=== PATIENT | male | born 1965 | race Caucasian/White ===

== ENCOUNTER 2021-12-27 16:52 | Emergency (ER) | payer SELFPAY ==
[2021-12-27] MEDS ORDERED: SODIUM CHLORIDE 0.9% 1,000 ML IV STA (17:06)
[2021-12-27] MEDS ORDERED: ONDANSETRON 4 MG/2 ML VIAL IVP STA (17:06)
--- NOTE | 2021-12-27 17:08 | ED Physician Documentation ---
PD HPI ABD PAIN - Stated complaint Stated Complaint: ABD PX - Chief complaint Chief Complaint: Abd Pain - History obtained from History obtained from: Patient - Additional information Additional information: 56-year-old gentleman with history of inguinal hernia repair he thinks about 7 or 8 years ago, otherwise no history of abdominal surgeries. He is a heavy smoker and drinker and has a history of hypertension. He has no formal diagnosis of COPD but does wonder if he has COPD. He presents with about a weeks worth of right lower quadrant pain associated with valeriano colored immediately stools and nausea with occasional vomiting. He denies fevers or weight loss. No diarrhea and no constipation. No sick contacts. He declines pain medication on initial evaluation but agrees to something for nausea. Review of Systems Ten Systems: 10 systems reviewed and negative Constitutional: denies: Fever, Chills Cardiac: reports: Reviewed and negative Respiratory: reports: Reviewed and negative PD PAST MEDICAL HISTORY - Past Medical History Cardiovascular: Hypertension, High cholesterol Respiratory: Pneumonia Endocrine/Autoimmune: None GI: None : None HEENT: Chronic sinusitis Psych: Panic attacks Musculoskeletal: None Derm: None - Past Surgical History Past Surgical History: Yes - Present Medications Home Medications: Ambulatory Orders Medication Instructions Recorded Confirmed Atorvastatin [Lipitor] 10 mg PO QPM 11/10/14 08/29/15 Chlorthalidone 1 tab PO DAILY 08/29/15 08/29/15 Metoprolol Tartrate 50 mg PO BID 08/29/15 08/29/15 Ondansetron Odt [Zofran] 4 mg TL Q6H PRN #10 tablet 12/27/21 - Allergies Allergies/Adverse Reactions: Allergies Allergy/AdvReac Type Severity Reaction Status Date / Time No Known Drug Allergies Allergy Verified 08/29/15 02:17 - Social History Does the pt smoke?: Yes Smoking Status: Current every day smoker Does the pt drink ETOH?: Yes Does the pt have substance abuse?: No - Immunizations Immunizations are current?: Yes PD ED PE NORMAL - Vitals Vital signs reviewed: Yes - General General: Alert and oriented X 3, Other (He appears slightly uncomfortable) - HEENT HEENT: PERRL, EOMI - Neck Neck: Supple, no meningeal sign, No bony TTP - Cardiac Cardiac: RRR, No murmur - Respiratory Respiratory: Other (Mild expiratory wheezes, nonlabored) - Abdomen Abdomen: Normal bowel sounds, Soft, Other (Mild diffuse tenderness with focal tenderness in the right lower quadrant) - Back Back: No CVA TTP, No spinal TTP - Derm Derm: Normal color, Warm and dry - Extremities Extremities: No edema, No calf tenderness / cord - Neuro Neuro: Alert and oriented X 3, Normal speech Results - Vitals Vitals: Vital Signs - 24 hr 12/27/21 12/27/21 12/27/21 16:55 17:27 18:57 Temperature 36.5 C Heart Rate 120 H 101 H 100 Respiratory 16 20 19 Rate Blood Pressure 180/100 H 169/118 H 150/97 H O2 Saturation 100 95 95 Oxygen O2 Source Room air - Labs Labs: Laboratory Tests 12/27/21 12/27/21 12/27/21 17:12 17:17 17:17 WBC 13.0 H RBC 5.61 Hgb 18.8 H Hct 53.1 H MCV 94.7 H MCH 33.5 H MCHC 35.4 RDW 14.1 Plt Count 229 MPV 9.7 Neut # (Auto) 11.0 H Lymph # (Auto) 1.1 L [place] # (Auto) 0.8 Eos # (Auto) 0.0 Baso # (Auto) 0.1 Absolute Nucleated RBC 0.00 Nucleated RBC % 0.0 Sodium 134 L Potassium 3.7 Chloride 101 Carbon Dioxide 22 Anion Gap 11.0 BUN 12 Creatinine 0.9 Estimated GFR (MDRD) 87 L Glucose 112 H Calcium 8.7 Total Bilirubin 0.7 AST 43 H ALT 55 Alkaline Phosphatase 73 Total Protein 8.0 Albumin 4.8 Globulin 3.2 Albumin/Globulin Ratio 1.5 Lipase 40 Urine Color YELLOW Urine Clarity CLEAR Urine pH 6.0 Ur Specific [place] >=1.030 H Urine Protein TRACE Urine Glucose (UA) NEGATIVE Urine Ketones NEGATIVE Urine Occult Blood NEGATIVE Urine Nitrite NEGATIVE Urine Bilirubin NEGATIVE Urine Urobilinogen 0.2 (NORMAL) Ur Leukocyte Esterase NEGATIVE Ur Microscopic Review NOT INDICATED Urine Culture Comments NOT INDICATED PD MEDICAL DECISION MAKING - ED course ED course: 56-year-old gentleman with history of tobacco and alcohol use presents with stomach upset and nausea. There is some pain but the pain is insignificant compared with the nausea. On repeat examination after couple doses of nausea medicine he is nontender. Really his nausea is getting better. He still declines pain medication. He has a very mild transaminitis. He has increased red cells likely due to chronic smoking and probably undiagnosed COPD. 56-year-old gentleman with a abdominal syndrome most consistent with gastroenteritis, that said it has been going on a little too long and does have some focal right lower quadrant tenderness, as such a work-up was done and CT imaging was negative. He did have some incidental findings including hepatic steatosis and nephrolithiasis which were discussed with him. He was encouraged to quit drinking and smoking. On reexamination at 7 PM he was nontender and he remained nontender on reexamination at 7:35 PM and had passed p.o. challenge at that juncture. He was given close return precautions. Departure - Departure Disposition: 01 Home, Self Care Clinical Impression: Polycythemia secondary to smoking, Alcoholic liver disease Vomiting Qualifiers: Vomiting type: unspecified Nausea presence: with nausea Qualified Code(s): R11.2 - Nausea with vomiting, unspecified Condition: Good Record reviewed to determine appropriate education?: Yes Instructions: ED Nausea Vomiting Prescriptions: Ondansetron Odt [Zofran] 4 mg TL Q6H PRN #10 tablet PRN Reason: Nausea / Vomiting Comments: I sent your prescription to [facility] in [place]. Return for new or worsening symptoms or if not better in 24 hours time. Ideally set up with a primary care physician for routine care and follow-up.
[2021-12-27] MEDS ORDERED: IOVERSOL 320 100 ML VIAL IVP ONE ×2 (17:17→18:16)
[2021-12-27 17:27] LABS: BASOPHILS # (AUTO) 0.1 10^3/uL (0.0-0.1); BASOPHILS % (AUTO) 0.8 %; EOSINOPHILS % (AUTO) 0.2 %; HCT - HEMATOCRIT 53.1 % (42.0-52.0); HGB - HEMOGLOBIN 18.8 g/dL (14.0-18.0); LYMPHOCYTES # (AUTO) 1.1 10^3/uL (1.5-3.5); LYMPHOCYTES % (AUTO) 8.1 %; MEAN CORPUSCULAR HEMOGLOBIN 33.5 pg (27.0-31.0); MEAN CORPUSCULAR HGB CONC 35.4 g/dL (32.0-36.0); MEAN CORPUSCULAR VOLUME 94.7 fL (80.0-94.0); MEAN PLATELET VOLUME 9.7 fL (7.4-11.4); MONOCYTES # (AUTO) 0.8 10^3/uL (0.0-1.0); MONOCYTES % (AUTO) 5.8 %; NEUTROPHILS % (AUTO) 84.8 %; PLT - PLATELET COUNT 229 10^3/uL (130-450); RED BLOOD COUNT 5.61 10^6/uL (4.70-6.10); RED CELL DISTRIBUTION WIDTH 14.1 % (12.0-15.0)
[2021-12-27 17:29] LABS: BILIRUBIN,URINE NEGATIVE (NEGATIVE); GLUCOSE, URINE (UA) NEGATIVE (NEGATIVE); KETONES,URINE (UA) NEGATIVE (NEGATIVE); LEUKOCYTE ESTERASE, URINE NEGATIVE (NEGATIVE); NITRITE,URINE NEGATIVE (NEGATIVE); OCCULT BLOOD,URINE NEGATIVE (NEGATIVE); PROTEIN,URINE TRACE mg/dL (NEGATIVE); UROBILINOGEN,URINE 0.2 (NORMAL) E.U./dL (NORMAL)
[2021-12-27 17:30] LABS: CLARITY,URINE CLEAR (CLEAR)
[2021-12-27 17:38] LABS: ALBUMIN 4.8 g/dL (3.2-5.5); ALBUMIN/GLOBULIN RATIO 1.5 (1.0-2.2); BILIRUBIN,TOTAL 0.7 mg/dL (0.2-1.0); CALCIUM 8.7 mg/dL (8.5-10.3); CREATININE 0.9 mg/dL (0.6-1.2); POTASSIUM 3.7 mmol/L (3.5-5.0)
--- NOTE | 2021-12-27 18:29 | CT Report ---
PROCEDURE: Abdomen/Pelvis W INDICATIONS: RLQ pain CONTRAST: IV CONTRAST: Optiray 320 ml: 100 PO CONTRAST: *NO PO CONTRAST TECHNIQUE: After the administration of intravenous contrast, 5 mm thick sections acquired from the diaphragms to the symphysis. 5 mm thick coronal and sagittal reformats were acquired. For radiation dose reducti on, the following was used: automated exposure control, adjustment of mA and/or kV according to jennifer ent size. COMPARISON: None. FINDINGS: Image quality: Excellent. ABDOMEN: Lung bases: Lung bases are clear. Heart size is normal. Solid organs: Liver and spleen are normal in size and enhancement. Diffuse fatty infiltration of the liver. Gallbladder is within normal limits Biliary system is non dilated. Pancreas enhances vicenta lly. No adrenal nodules. Kidneys demonstrate normal size and enhancement, without hydronephrosis. 2 -3 mm nonobstructing stone in the lower pole of the right kidney. Peritoneum and bowel: Bowel loops demonstrate normal wall thickness and caliber. No free fluid or a ir. Appendix is normal. Nodes and vessels: No retroperitoneal or mesenteric adenopathy by size criteria. Aorta and inferior vena cava are normal in size. Miscellaneous: No ventral hernias. PELVIS: Genitourinary: Bladder wall thickness is normal. Miscellaneous: No inguinal hernias or adenopathy. Status post right inguinal hernia repair. Bones: No suspicious bony lesions. No vertebral body compression fractures. IMPRESSION: 1. Appendix is normal. 2. 2-3 mm nonobstructing right renal stone. 3. Hepatic steatosis. Reviewed by: Martha Reyes MD, PhD on 12/27/2021 6:28 PM PST Approved by: Martha Reyes MD, PhD on 12/27/2021 6:28 PM PST Station ID: [id number]
[2021-12-27] MEDS ORDERED: METOCLOPRAMIDE 10 MG/2 ML VIAL IVP STA (18:34)
[2021-12-27] MEDS ORDERED: MAG HYDROX/AL HYDROX/SIMETH 30 ML UDC PO STA (18:48)
[2021-12-27 19:43] VITALS: BP 148/93
== END 2021-12-27 19:43 | disposition home or self-care (01) ==
LOC: ED 16:52
DX: D75.1 Secondary polycythemia (principal); F17.200 Nicotine dependence, unspecified, uncomplicated; K70.9 Alcoholic liver disease, unspecified; K76.0 Fatty (change of) liver, not elsewhere classified; N20.0 Calculus of kidney
CPT/HCPCS: 36415; 74177; 80053; 81003; 83690; 85025; 96374; 96375; 99282; 99284; A9270; J2765; Q9967; 81001; 87086

== ENCOUNTER 2022-09-06 15:31 | Emergency (ER) | payer SELFPAY ==
[2022-09-06 16:12] LABS: BASOPHILS # (AUTO) 0.1 10^3/uL (0.0-0.1); BASOPHILS % (AUTO) 1.1 %; EOSINOPHILS # (AUTO) 0.1 10^3/uL (0.0-0.7); EOSINOPHILS % (AUTO) 1.5 %; HCT - HEMATOCRIT 51.2 % (42.0-52.0); HGB - HEMOGLOBIN 17.6 g/dL (14.0-18.0); LYMPHOCYTES # (AUTO) 1.7 10^3/uL (1.5-3.5); LYMPHOCYTES % (AUTO) 26.2 %; MEAN CORPUSCULAR HEMOGLOBIN 32.1 pg (27.0-31.0); MEAN CORPUSCULAR HGB CONC 34.4 g/dL (32.0-36.0); MEAN CORPUSCULAR VOLUME 93.4 fL (80.0-94.0); MEAN PLATELET VOLUME 10.2 fL (7.4-11.4); MONOCYTES # (AUTO) 0.7 10^3/uL (0.0-1.0); MONOCYTES % (AUTO) 10.5 %; NEUTROPHILS % (AUTO) 60.4 %; PLT - PLATELET COUNT 225 10^3/uL (130-450); RED BLOOD COUNT 5.48 10^6/uL (4.70-6.10); RED CELL DISTRIBUTION WIDTH 13.9 % (12.0-15.0); WHITE BLOOD COUNT 6.6 x10^3/uL (4.8-10.8)
[2022-09-06 16:21] LABS: ALBUMIN 4.2 g/dL (3.2-5.5); ALBUMIN/GLOBULIN RATIO 1.2 (1.0-2.2); BILIRUBIN,TOTAL 0.6 mg/dL (0.2-1.0); CREATININE 0.8 mg/dL (0.6-1.2); POTASSIUM 3.6 mmol/L (3.5-5.0); TOTAL PROTEIN 7.6 g/dL (6.7-8.2)
[2022-09-06] MEDS ORDERED: iohexoL-300 100 ML VIAL ONE (16:37)
[2022-09-06] MEDS ORDERED: SODIUM CHLORIDE 0.9% 1,000 ML IV STA (16:45)
--- NOTE | 2022-09-06 16:49 | XRAY Report ---
PROCEDURE: Chest 1 View X-Ray INDICATIONS: Chest Pain TECHNIQUE: One view of the chest was acquired. COMPARISON: None. FINDINGS: Surgical changes and devices: None. Lungs and pleura: No pleural effusions or pneumothorax. Lungs are clear. Mediastinum: Mediastinal contours appear normal. Heart size is normal. Bones and chest wall: No suspicious bony lesions. Overlying soft tissues appear unremarkable. IMPRESSION: No acute cardiopulmonary process demonstrated radiographically. Reviewed by: Micah Michael MD on 09/06/2022 4:48 PM PST Approved by: Micah Michael MD on 09/06/2022 4:48 PM PST Station ID: [id number]
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
[2022-09-06 17:27] LABS: MUDS CUTOFF CONCENTRATIONS CUTOFF CONC BELOW:
--- NOTE | 2022-09-06 17:42 | CT Report ---
PROCEDURE: ANGIO NECK W INDICATIONS: dizzy, flashing lights CONTRAST: 80ml Omnipaque 300 TECHNIQUE: After the administration of intravenous contrast, 1.5 mm axial sections acquired from the aortic arch to the [place] of [place]. Coronal 3-D maximum intensity projection (MIP) and/or volume rendering ref ormats were then performed. For radiation dose reduction, the following was used: automated exposur e control, adjustment of mA and/or kV according to patient size. COMPARISON: Correlation is made with the accompanying head CT angiogram, 09/06/2022. FINDINGS: Image quality: Excellent. Carotid system: The great vessels demonstrate a conventional anatomy as they arise from the aortic a rch. The origins of the common carotid arteries appear patent. The common carotid arteries demonstr ate normal calibers and courses. The bifurcation regions appear normal bilaterally. The internal ca rotid arteries demonstrate normal caliber. The distal internal carotid arteries demonstrate moderate tortuosity. Posterior circulation: The origins of the vertebral arteries appear patent. The more superior porti ons of the vertebral arteries demonstrate normal course and caliber. They join to form a normal appe aring basilar artery. Soft tissues: Visualized neck soft tissues demonstrate no suspicious abnormalities. The thyroid is normal in size and there are no incidental findings. Bones: No suspicious bony lesions. Visualized cervical spine appears normally aligned. Moderate low er cervical spine degenerative changes can be seen. IMPRESSION: No hemodynamically significant stenosis can be seen within the arteries of the neck. The estimate of stenosis included in the report of the imaging study was calculated using the NASCET method Reviewed by: Ronald Min MD on 09/06/2022 4:41 PM AKST Approved by: Ronald Min MD on 09/06/2022 4:41 PM [place] Station ID: [id number]
[2022-09-06 17:43] LABS: AMPHETAMINE SCREEN,URINE NEGATIVE (NEGATIVE); BARBITURATE SCREEN,UR NEGATIVE (NEGATIVE); BENZODIAZEPINES SCREEN, URINE NEGATIVE (NEGATIVE); COCAINE SCREEN URINE NEGATIVE (NEGATIVE); METHADONE SCREEN, URINE NEGATIVE (NEGATIVE); METHAMPHETAMINES SCREEN, URINE NEGATIVE (NEGATIVE); OPIATE SCREEN, URINE NEGATIVE (NEGATIVE); OXYCODONE SCREEN, URINE NEGATIVE (NEGATIVE); PROPOXYPHENE SCREEN, URINE NEGATIVE (NEGATIVE); THC CANNABINOID SCREEN, URINE NEGATIVE (NEGATIVE); TRICYCLIC ANTIDEPRESSANT,URINE NEGATIVE (NEGATIVE)
--- NOTE | 2022-09-06 17:45 | CT Report ---
PROCEDURE: ANGIO HEAD W/WO INDICATIONS: dizzy flashing lights CONTRAST: 80ml Omnipaque 300 TECHNIQUE: Precontrast 4.5 mm thick angled axial sections acquired from the foramen magnum to the vertex. Afte r the administration of intravenous contrast, 1 mm thick sections acquired through the [place] of [place] is. Postcontrast 4.5 mm thick sections then re-acquired from the foramen magnum to the vertex. 3-di mensional qlkivys-vgyjdwdkh-bjjgqiagzv (MIP) and/or volume rendering reformats were acquired of the c entral intracranial vasculature. For radiation dose reduction, the following was used: automated ex posure control, adjustment of mA and/or kV according to patient size. COMPARISON: Correlation is made with the accompanying neck CT angiogram, 09/06/2022. FINDINGS: Image quality: There is streak artifact seen through the skull base. Anterior circulation: Intracranial internal carotid arteries are normal in size and flow. The flow within the paired anterior cerebral arteries is normal and symmetric. The flow within the middle cer ebral arteries is normal and symmetric. The anterior communicating artery is seen. No aneurysms are seen. Posterior circulation: Visualized portions of the vertebral arteries demonstrate normal caliber, and join to form a normal appearing basilar artery. Flow within the posterior cerebral arteries is norm al and symmetric. No aneurysms are seen. CSF spaces: Ventricles are normal in size and shape. Basal cisterns are patent. No extra-axial flu id collections. Brain: No midline shift. No intracranial bleeds or masses. Pena-white matter interface appears int act. Skull and face: Calvarium and facial bones appear intact, without suspicious lesions. Sinuses: Moderate to prominent mucosal thickening is seen within the left right sphenoid sinus. Visu alized sinuses and mastoids are otherwise relatively clear. IMPRESSION: No imaging explanation is found for the patient's presenting symptoms. No significant intracranial arterial abnormalities are seen. No intracranial hemorrhage is seen. No significant intracranial abnormality is seen. Focal right sphenoid sinus disease noted. Reviewed by: Ronald Min MD on 09/06/2022 4:43 PM [place] Approved by: Ronald Min MD on 09/06/2022 4:43 PM [facility] Station ID: [id number]
[2022-09-06 17:50] LABS: VBG HCO3 25.7 mmol/L (23-28); VBG PCO2 49.6 mmHg (41-51); VBG PH 7.332 (7.31-7.41); VBG PO2 45.1 mmHg (25-47)
[2022-09-06 17:51] LABS: VBG OXYGEN SATURATION 79.8 % (60-80); VBG TOTAL CO2 27.2 mmol/L (24-29)
[2022-09-06] MEDS ORDERED: iohexoL-300 100 ML VIAL IVP ONE (18:03)
[2022-09-06] MEDS ORDERED: THIAMINE INJ 100 MG, MAGNESIUM SULFATE 2 GM, MULTIVITAMIN 10 ML, FOLIC ACID INJ 1 MG in... IV ONE ×5 (19:22)
[2022-09-06] MEDS ORDERED: MIDAZOLAM 2 MG/2 ML VIAL IVP STA (19:22)
[2022-09-06] MEDS ORDERED: MAGNESIUM SULFATE 1 GM/2 ML VIAL ONE (19:25)
[2022-09-06] MEDS ORDERED: THIAMINE 100 MG/1 ML 2 ML MDV ONE (19:25)
[2022-09-06] MEDS ORDERED: MULTIVITAMIN IV 10 ML VIAL ONE (19:25)
[2022-09-06] MEDS ORDERED: FOLIC ACID 5 MG/1 ML 10ML MDV ONE (19:25)
[2022-09-06] MEDS ORDERED: levETIRAcetam INJ 1,000 MG in SODIUM CHLORIDE 0.9% 100ML 100 ML IV STA (19:52)
[2022-09-06] MEDS ORDERED: levETIRAcetam 500 MG/5 ML VIAL IVP STA (21:36)
[2022-09-06] MEDS ORDERED: SODIUM CHLORIDE 0.9% IV STA (21:53)
[2022-09-06] MEDS ORDERED: LEVETIRACETAM IV STA (21:53)
[2022-09-06] MEDS ORDERED: DEXTROSE 50% ABBOJECT 25 GM/50 ML SYRINGE IVP STA (23:00)
[2022-09-06] MEDS ORDERED: DEXTROSE 5%-0.45% NACL 1,000 ML IV STA (23:03)
[2022-09-06] MEDS ORDERED: DEXTROSE 50% ABBOJECT 25 GM/50 ML SYRINGE ONE (23:07)
--- NOTE | 2022-09-06 23:30 | ED Physician Documentation ---
ED Addendum - Addendum Addendum: 09/06/22 23:28 Patient arousable to loud verbal stimulation. Subsequently he closes his eyes and rhythmically shakes right hand. d/w [facility] who are searching for bed with EEG monitoring capability. 09/07/22 06:36 Patient AOX4 shortly after the unresponsive episode. No further acute events overnight. plan to endorse to incoming daytime ED MD for further care.
[2022-09-07 07:38] LABS: BASOPHILS # (AUTO) 0.1 10^3/uL (0.0-0.1); EOSINOPHILS # (AUTO) 0.1 10^3/uL (0.0-0.7); EOSINOPHILS % (AUTO) 1.7 %; HCT - HEMATOCRIT 44.8 % (42.0-52.0); HGB - HEMOGLOBIN 15.5 g/dL (14.0-18.0); LYMPHOCYTES # (AUTO) 0.9 10^3/uL (1.5-3.5); LYMPHOCYTES % (AUTO) 16.2 %; MEAN CORPUSCULAR HEMOGLOBIN 32.8 pg (27.0-31.0); MEAN CORPUSCULAR HGB CONC 34.6 g/dL (32.0-36.0); MEAN CORPUSCULAR VOLUME 94.9 fL (80.0-94.0); MEAN PLATELET VOLUME 10.3 fL (7.4-11.4); MONOCYTES # (AUTO) 0.6 10^3/uL (0.0-1.0); NEUTROPHILS # (AUTO) 4.1 10^3/uL (1.5-6.6); NEUTROPHILS % (AUTO) 69.8 %; PLT - PLATELET COUNT 203 10^3/uL (130-450); RED BLOOD COUNT 4.72 10^6/uL (4.70-6.10); WHITE BLOOD COUNT 5.8 x10^3/uL (4.8-10.8)
[2022-09-07 07:51] LABS: ALBUMIN 3.9 g/dL (3.2-5.5); ALBUMIN/GLOBULIN RATIO 1.5 (1.0-2.2); ALKALINE PHOSPHATASE 79 IU/L (42-121); ALT ALANINE AMINOTRANSFERASE 44 IU/L (10-60); AST ASPARTATE AMINOTRANSFERASE 35 IU/L (10-42); BILIRUBIN,TOTAL 0.6 mg/dL (0.2-1.0); BUN - BLOOD UREA NITROGEN 10 mg/dL (6-20); CALCIUM 8.1 mg/dL (8.5-10.3); CARBON DIOXIDE - CO2 24 mmol/L (21-32); CHLORIDE 106 mmol/L (101-111); CREATININE 0.6 mg/dL (0.6-1.2); ETOH - ETHANOL < 5.0 mg/dL; GFR - MDRD 139 (>89); GLUCOSE 84 mg/dL (70-100); LIPASE 39 U/L (22-51); POTASSIUM 3.9 mmol/L (3.5-5.0); SODIUM 139 mmol/L (135-145); TOTAL PROTEIN 6.5 g/dL (6.7-8.2)
[2022-09-07] MEDS ORDERED: GADOBUTROL 10 MMOL/10 ML VIAL ONE (08:25)
--- NOTE | 2022-09-07 08:38 | ED Physician Documentation ---
ED Addendum - Addendum Addendum: Subjective: Patient has no current complaints. States his vision is back to his baseline. Objective: AOx4. No focal deficits, clear speech Assessment: Seizure-like activity Plan:MRI has been ordered for today. Patient is also on waiting list for transfer to facility with EEG capabilities.
[2022-09-07] MEDS ORDERED: levETIRAcetam INJ 1,000 MG in SODIUM CHLORIDE 0.9% 100ML 100 ML IV SCH (09:00)
[2022-09-07] MEDS ORDERED: FOLIC ACID 1 MG TABLET PO SCH (09:00)
[2022-09-07] MEDS ORDERED: THIAMINE 100 MG TABLET PO SCH (09:00)
[2022-09-07] MEDS ORDERED: GADOBUTROL 10 MMOL/10 ML VIAL IVP ONE (10:27)
--- NOTE | 2022-09-07 11:21 | MRI Report ---
PROCEDURE: MRI brain with and without contrast INDICATIONS: AMS, ? seizure; history of right retinal stroke CONTRAST: 10ml gadavist TECHNIQUE: Noncontrast axial T1 spin echo, axial T2 fast spin echo, sagittal and axial FLAIR, coronal T2 fast sp in echo, axial gradient echo, axial diffusion and ADC through the brain. After the administration of contrast, axial and coronal T1 spin echo with fat saturation through the brain. COMPARISON: None. FINDINGS: Image quality: Excellent. CSF spaces: Basal cisterns are patent. No extra-axial fluid collections. Ventricles are normal in size and shape. Brain: No midline shift. No intracranial bleeds or masses. No abnormal intracranial enhancement. There is cerebral volume loss for age. There is periventricular white matter chronic small vessel is chemic change. The brainstem appears normal. Diffusion-weighted images demonstrate no acute ischemi c insults. No chronic ischemic insults. Normal intravascular flow voids are present. Skull and face: Calvarial marrow is normal in signal. Orbits appear normal. Sinuses: Right sphenoid mucosal thickening noted. IMPRESSION: Unremarkable MR brain without intracranial hemorrhage, acute infarct or mass lesion. Incidental right sphenoid mucosal sinus disease Reviewed by: Stan Stewart MD on 09/07/2022 10:20 AM [facility] Approved by: Stan Stewart MD on 09/07/2022 10:20 AM [facility] Station ID: [id number]
[2022-09-07 13:36] VITALS: BP 125/90
--- NOTE | 2022-09-07 14:04 | ED Physician Documentation ---
ED Addendum - Addendum Addendum: 09/07/22 14:00 In brief this is a 57-year-old male who presented to the emergency department yesterday afternoon with altered mental status. He alternated between being obtunded with a Glascow of 8-9 to being completely awake. There was a question of possible seizure activity on presentation as he had a rhythmic jerking motion of his right arm. Subsequent labs were essentially negative with the exception of an elevated blood alcohol of 293. However the elevated alcohol intoxication was not consistent with the changing altered mental status presentation. CT imaging of the head and neck was negative. Please see yesterday's note in full. I subsequently spoke with Dr. Banuelos a neurologist at [facility]. He recommended loading the patient with 4-1/2 g of Keppra for the possibility of a subclinical status epilepticus and attempt to arrange transfer to an [facility] facility that could have neurology and/or EEG availability. Unfortunately there is a paucity of beds and this did not occur. This morning the patient did have an MRI completed that was essentially negative. The patient has also been very awake alert and appropriate since about 4 AM. I just spoke with Dr. Clarke neurologist at [facility]. She has been able to review the MRI imaging she was privileged to know the labs as well as the clinical exam at present. He is a Glascow of 15. No focal deficits with the exception of the loss of vision in the right eye which has been present for 1 month after a retinal stroke. His blood alcohol at this time is undetectable and the patient appears clinically sober. She feels that the patient is stable for discharge home. She thinks that he may have had a subclinical status epilepticus related to alcohol use but now that his alcohol is cleared and he is remained normal she does not feel that he would need to have Keppra dispensed on discharge. She would recommend follow-up with a neurologist as an outpatient to obtain an EEG. I have discussed this plan with the patient and he is comfortable with discharge home. He will continue to take his usual routine medications. He has unremarkable vitals at this time without fever. I discussed with the patient that should he have any new seizure activities he should immediately return to the ER. He was advised to abstain from alcohol.
== END 2022-09-07 14:44 | disposition home or self-care (01) ==
LOC: ED 15:31
DX: F10.129 Alcohol abuse with intoxication, unspecified (principal); Y90.8 Blood alcohol level of 240 mg/100 ml or more; R40.2422 Glasgow coma scale score 9-12, at arrival to emergency department; F17.200 Nicotine dependence, unspecified, uncomplicated; Z20.822 Contact with and (suspected) exposure to COVID-19
CPT/HCPCS: 36415; 51702; 70496; 70498; 70553; 71045; 80053; 80306; 80320; 81599; 82803; 83605; 83690; 83930; 83935; 84484; 85025; 87635; 93005; 96361; 96365; 96366; 96368; 96375; 99285; A9270; A9585; J3411; Q9967

== ENCOUNTER 2022-09-12 23:22 | Outpatient (CLI) | payer SELFPAY | END 2022-09-12 23:59 | disposition critical access hospital (66) | LOC: EMS 23:22 | DX: R41.82 Altered mental status, unspecified (principal); R46.89 Other symptoms and signs involving appearance and behavior; R06.4 Hyperventilation; Z72.89 Other problems related to lifestyle | CPT/HCPCS: A0425; A0429 ==

== ENCOUNTER 2022-09-12 23:44 | Emergency (ER) | payer SELFPAY ==
[2022-09-13] MEDS ORDERED: levETIRAcetam 500 MG/5 ML VIAL IVP STA (00:24)
[2022-09-13] MEDS ORDERED: THIAMINE INJ 100 MG, MAGNESIUM SULFATE 2 GM, MULTIVITAMIN 10 ML, FOLIC ACID INJ 1 MG in... IV ONE ×5 (00:24)
[2022-09-13 00:25] LABS: BASOPHILS # (AUTO) 0.1 10^3/uL (0.0-0.1); BASOPHILS % (AUTO) 1.5 %; EOSINOPHILS # (AUTO) 0.1 10^3/uL (0.0-0.7); EOSINOPHILS % (AUTO) 1.4 %; HCT - HEMATOCRIT 47.9 % (42.0-52.0); HGB - HEMOGLOBIN 16.2 g/dL (14.0-18.0); LYMPHOCYTES # (AUTO) 2.2 10^3/uL (1.5-3.5); LYMPHOCYTES % (AUTO) 30.5 %; MEAN CORPUSCULAR HEMOGLOBIN 32.3 pg (27.0-31.0); MEAN CORPUSCULAR HGB CONC 33.8 g/dL (32.0-36.0); MEAN CORPUSCULAR VOLUME 95.4 fL (80.0-94.0); MEAN PLATELET VOLUME 10.5 fL (7.4-11.4); MONOCYTES # (AUTO) 0.7 10^3/uL (0.0-1.0); MONOCYTES % (AUTO) 9.7 %; NEUTROPHILS % (AUTO) 56.5 %; PLT - PLATELET COUNT 279 10^3/uL (130-450); RED BLOOD COUNT 5.02 10^6/uL (4.70-6.10); RED CELL DISTRIBUTION WIDTH 14.6 % (12.0-15.0); WHITE BLOOD COUNT 7.2 x10^3/uL (4.8-10.8)
[2022-09-13] MEDS ORDERED: MULTIVITAMIN IV 10 ML VIAL ONE (00:31)
[2022-09-13] MEDS ORDERED: MAGNESIUM SULFATE 1 GM/2 ML VIAL ONE (00:31)
[2022-09-13] MEDS ORDERED: THIAMINE 100 MG/1 ML 2 ML MDV ONE (00:31)
[2022-09-13] MEDS ORDERED: FOLIC ACID 5 MG/1 ML 10ML MDV ONE (00:31)
[2022-09-13 00:43] LABS: ALBUMIN 3.9 g/dL (3.2-5.5); ALBUMIN/GLOBULIN RATIO 1.3 (1.0-2.2); BILIRUBIN,TOTAL 0.3 mg/dL (0.2-1.0); CALCIUM 8.9 mg/dL (8.5-10.3); CREATININE 0.8 mg/dL (0.6-1.2); POTASSIUM 3.9 mmol/L (3.5-5.0); TOTAL PROTEIN 6.9 g/dL (6.7-8.2)
[2022-09-13] MEDS ORDERED: LORazepam 2 MG/ML VIAL IVP STA ×2 (00:49→09:17)
--- NOTE | 2022-09-13 01:54 | CT Report ---
PROCEDURE: HEAD WO INDICATIONS: altered LOC TECHNIQUE: Noncontrast 4.5 mm thick angled axial sections acquired from the foramen magnum to the vertex. For r adiation dose reduction, the following was used: automated exposure control, adjustment of mA and/or kV according to patient size. COMPARISON: 09/06/2022. FINDINGS: Image quality: There is mild motion artifact. CSF spaces: Basal cisterns are patent. No extra-axial fluid collections. Ventricles are normal in size and shape. Brain: No intracranial hemorrhage, mass, or mass effect. Pena-white matter interface appears preser ashlee. Skull and face: Calvarium and visualized facial bones are intact, without suspicious lesions. Sinuses: Visualized sinuses demonstrate mild mucosal thickening in the ethmoid sinuses. There is muc osal opacification of the right sphenoid sinus. Mastoid air cells are clear. IMPRESSION: 1. No acute intracranial abnormality. 2. Sinus mucosal disease including mucosal opacification of the right sphenoid sinus. Reviewed by: Stanley Colon MD on 09/13/2022 1:53 AM PST Approved by: Stanley Colon MD on 09/13/2022 1:53 AM PST Station ID: [id number]
--- NOTE | 2022-09-13 02:06 | XRAY Report ---
PROCEDURE: Chest 1 View X-Ray INDICATIONS: chest pain TECHNIQUE: One view of the chest was acquired. COMPARISON: Chest x-ray 09/06/2022. FINDINGS: Surgical changes and devices: None. Lungs and pleura: No pleural effusions or pneumothorax. There are slightly low lung volumes. No acut e consolidation. Mediastinum: Mediastinal contours appear normal. Heart size is normal. Bones and chest wall: No suspicious bony lesions. Overlying soft tissues appear unremarkable. IMPRESSION: 1. Low lung volumes without definite acute cardiopulmonary disease. Reviewed by: Stanley Colon MD on 09/13/2022 2:05 AM [facility] Approved by: Stanley Colon MD on 09/13/2022 2:05 AM [facility] Station ID: [id number]
[2022-09-13 02:23] LABS: MUDS CUTOFF CONCENTRATIONS CUTOFF CONC BELOW:
[2022-09-13 02:25] LABS: BILIRUBIN,URINE NEGATIVE (NEGATIVE); GLUCOSE, URINE (UA) NEGATIVE (NEGATIVE); KETONES,URINE (UA) NEGATIVE (NEGATIVE); LEUKOCYTE ESTERASE, URINE NEGATIVE (NEGATIVE); NITRITE,URINE NEGATIVE (NEGATIVE); OCCULT BLOOD,URINE NEGATIVE (NEGATIVE); PROTEIN,URINE NEGATIVE (NEGATIVE); UROBILINOGEN,URINE 0.2 (NORMAL) E.U./dL (NORMAL)
[2022-09-13 02:26] LABS: CLARITY,URINE CLEAR (CLEAR)
[2022-09-13 02:39] LABS: AMPHETAMINE SCREEN,URINE NEGATIVE (NEGATIVE); BARBITURATE SCREEN,UR NEGATIVE (NEGATIVE); BENZODIAZEPINES SCREEN, URINE NEGATIVE (NEGATIVE); COCAINE SCREEN URINE NEGATIVE (NEGATIVE); METHADONE SCREEN, URINE NEGATIVE (NEGATIVE); METHAMPHETAMINES SCREEN, URINE NEGATIVE (NEGATIVE); OPIATE SCREEN, URINE NEGATIVE (NEGATIVE); OXYCODONE SCREEN, URINE NEGATIVE (NEGATIVE); PROPOXYPHENE SCREEN, URINE NEGATIVE (NEGATIVE); THC CANNABINOID SCREEN, URINE NEGATIVE (NEGATIVE); TRICYCLIC ANTIDEPRESSANT,URINE NEGATIVE (NEGATIVE)
[2022-09-13] MEDS ORDERED: cefTRIAXone 1 GM in SODIUM CHLORIDE 0.9% MINIBAG 100 ML IV STA (02:54)
--- NOTE | 2022-09-13 02:54 | ED Physician Documentation ---
PD HPI ALTERED MENTAL STATUS - Stated complaint Stated Complaint: AMS/ETOH - Chief complaint Chief Complaint: Neuro - History obtained from History obtained from: Patient, Family, EMS - History of Present Illness Timing - onset: Today Timing - duration: Hours Timing - details: Gradual onset, Still present Quality / character: Confused, Disoriented, Hallucinating, Other (shaking right arm) Associated symptoms: Cough, Seizure activity. No: Fever, Headache, Stiff neck, Dyspnea, NVD, Urinary sx, General weakness, Focal weakness, Syncope Contributing factors: Intoxicated Basline status: Alert and oriented X 3, Ambulatory, Independent Similar symptoms before: Diagnosis (alcohol intoxication with question of focal motor seizure. alcohol poisoning) Recently seen: Emergency Dept (here one week ago with similar symptoms.), Admitted (To [facility] for alcohol poisoning) - Additional information Additional information: 57-year-old Lamonte Nelson presents to the emergency department again today by ambulance with a chief complaint of decreased responsiveness and right arm shaking. He has a history of alcohol intoxication and has a recent admission to [facility] for alcohol poisoning as well as a recent admission into our emergency department about 1 week ago with alcohol intoxication that was complicated by right arm shaking and intermittent unresponsiveness. It took the patient 2 days to sober. At that point the patient appeared to have resolved his intoxication. He no longer had arm shaking. During that visit consultation with neurology was made and they attempted to suppress this movement with Keppra and this appeared unsuccessful. However the patient's movement did eventually resolve, but according to his brother he continued to have this to a lesser extent even at home. The patient is an unreliable historian. He has returned to heavy drinking. Review of Systems Unable to obtain: Intoxicated PD PAST MEDICAL HISTORY - Past Medical History Cardiovascular: Hypertension, High cholesterol Respiratory: Pneumonia Endocrine/Autoimmune: None GI: None : None HEENT: Chronic sinusitis Psych: Panic attacks Musculoskeletal: None Derm: None - Past Surgical History Past Surgical History: Yes - Present Medications Home Medications: Ambulatory Orders Medication Instructions Recorded Confirmed Atorvastatin [Lipitor] 10 mg PO QPM 11/10/14 08/29/15 Chlorthalidone 1 tab PO DAILY 08/29/15 08/29/15 Metoprolol Tartrate 50 mg PO BID 08/29/15 08/29/15 Ondansetron Odt [Zofran] 4 mg TL Q6H PRN #10 tablet 12/27/21 - Allergies Allergies/Adverse Reactions: Allergies Allergy/AdvReac Type Severity Reaction Status Date / Time codeine Allergy Unknown Verified 09/12/22 23:51 - Social History Does the pt smoke?: Yes Smoking Status: Current every day smoker Does the pt drink ETOH?: Yes Does the pt have substance abuse?: No - Immunizations Immunizations are current?: Yes PD ED PE NORMAL - Vitals Vital signs reviewed: Yes (hypertensive ) - General General: Well developed/nourished, Other (dishoveled 57 y/o heavily bearded male with a waving right arm, periodic grunting and no clear response to vervbal or tactile. ) - HEENT HEENT: Atraumatic, PERRL, EOMI, Other (dry mucous membranes ) - Neck Neck: Supple, no meningeal sign, No bony TTP - Cardiac Cardiac: RRR, No murmur - Respiratory Respiratory: No respiratory distress, Other (diminished breath sounds. ) - Abdomen Abdomen: Soft, Non tender - Back Back: No CVA TTP, No spinal TTP - Derm Derm: Normal color, Warm and dry, No rash - Extremities Extremities: No deformity, No edema, Other (The right arm is waving at the elbow with wide movements rhythmically at about 1 htz. ) - Neuro Neuro: No motor deficit, No sensory deficit, Other (grunting expression) Eye Opening: Spontaneous Motor: Localizes to Pain Verbal: Confused GCS Score: 13 - Psych Psych: Other (flat affect) Results - Vitals Vitals: Vital Signs - 24 hr 09/12/22 09/13/22 09/13/22 23:48 01:50 03:00 Temperature 36.4 C L Heart Rate 99 95 90 Respiratory 15 14 15 Rate Blood Pressure 172/115 H 128/84 H 107/69 O2 Saturation 95 96 94 If not protocol : Oxygen Flow, liters/minute 09/13/22 09/13/22 05:00 07:00 Temperature Heart Rate 92 90 Respiratory 16 12 Rate Blood Pressure 117/79 116/79 O2 Saturation 100 93 If not protocol 2 : Oxygen Flow, liters/minute Oxygen O2 Source Nasal cannula - EKG (time done) 0055 Rate: Rate (enter#) (97) Rhythm: NSR Compare to prior EKG: Unchanged from prior EKG (SPT 09-06-2022 no sig change) Computer interpretation: Agree with computer - Labs Labs: Laboratory Tests 09/12/22 09/12/22 09/13/22 23:54 23:54 00:35 WBC 7.2 RBC 5.02 Hgb 16.2 Hct 47.9 MCV 95.4 H MCH 32.3 H MCHC 33.8 RDW 14.6 Plt Count 279 MPV 10.5 Neut # (Auto) 4.0 Lymph # (Auto) 2.2 [place] # (Auto) 0.7 Eos # (Auto) 0.1 Baso # (Auto) 0.1 Absolute Nucleated RBC 0.00 Nucleated RBC % 0.0 Sodium 145 Potassium 3.9 Chloride 110 Carbon Dioxide 23 Anion Gap 12.0 BUN 14 Creatinine 0.8 Estimated GFR (MDRD) 100 Glucose 94 Lactic Acid 2.5 H Calcium 8.9 Total Bilirubin 0.3 AST 29 ALT 41 Alkaline Phosphatase 103 Total Protein 6.9 Albumin 3.9 Globulin 3.0 Albumin/Globulin Ratio 1.3 Lipase 61 H Urine Color Urine Clarity Urine pH Ur Specific [place] Urine Protein Urine Glucose (UA) Urine Ketones Urine Occult Blood Urine Nitrite Urine Bilirubin Urine Urobilinogen Ur Leukocyte Esterase Ur Microscopic Review Urine Culture Comments Urine Opiates Screen Ur Oxycodone Screen Urine Methadone Screen Ur Propoxyphene Screen Ur Barbiturates Screen Ur Tricyclics Screen Ur Phencyclidine Scrn Ur Amphetamine Screen U Methamphetamines Scrn U Benzodiazepines Scrn Urine Cocaine Screen U Cannabinoids Screen Ethyl Alcohol 314.0 09/13/22 09/13/22 02:10 07:17 WBC RBC Hgb Hct MCV MCH MCHC RDW Plt Count MPV Neut # (Auto) Lymph # (Auto) [place] # (Auto) Eos # (Auto) Baso # (Auto) Absolute Nucleated RBC Nucleated RBC % Sodium Potassium Chloride Carbon Dioxide Anion Gap BUN Creatinine Estimated GFR (MDRD) Glucose Lactic Acid Calcium Total Bilirubin AST ALT Alkaline Phosphatase Total Protein Albumin Globulin Albumin/Globulin Ratio Lipase Urine Color YELLOW Urine Clarity CLEAR Urine pH 6.0 Ur Specific [place] 1.025 Urine Protein NEGATIVE Urine Glucose (UA) NEGATIVE Urine Ketones NEGATIVE Urine Occult Blood NEGATIVE Urine Nitrite NEGATIVE Urine Bilirubin NEGATIVE Urine Urobilinogen 0.2 (NORMAL) Ur Leukocyte Esterase NEGATIVE Ur Microscopic Review NOT INDICATED Urine Culture Comments NOT INDICATED Urine Opiates Screen NEGATIVE Ur Oxycodone Screen NEGATIVE Urine Methadone Screen NEGATIVE Ur Propoxyphene Screen NEGATIVE Ur Barbiturates Screen NEGATIVE Ur Tricyclics Screen NEGATIVE Ur Phencyclidine Scrn NEGATIVE Ur Amphetamine Screen NEGATIVE U Methamphetamines Scrn NEGATIVE U Benzodiazepines Scrn NEGATIVE Urine Cocaine Screen NEGATIVE U Cannabinoids Screen NEGATIVE Ethyl Alcohol 154.5 - Rads (name of study) CT head Radiology: Prelim report reviewed (Impression: 1. No acute intracranial abnormality. Sinus mucosal disease including mucosal opacification of the right sphenoid sinus.), EMP read indepedently, See rad report PD MEDICAL DECISION MAKING - ED course Complexity details: reviewed old records, reviewed results, re-evaluated patient, considered differential, d/w patient, d/w family ED course: 57-year-old male with a history of alcoholism has had a recent admission for alcohol poisoning and he has had a recent visit to our emergency department with alcohol intoxication associated with intermittent unresponsiveness and right arm shaking. During that visit he was treated with Keppra in an attempt to suppress the movement of his right arm. He eventually had improvement and sobered and was able to communicate appropriately. Today he has returned with similar symptoms. He is again intoxicated. He is accompanied today by his brother who indicates that he was asked to stop drinking but has not complied with this.He presents with this unusual right arm movement which is a waving motion at the elbow and shoulder. We administered Keppra 500 mg IV without c hange in this movement and this movement was promptly abandon with 2 mg of Ativan. The patient became conversant but continued to have some confusion. A repeat CT scan is without new findings. There is right sphenoid sinus opacification and he has history of chronic sinusitis. He is administered a dose of rocephin IV considering acute on chronic potentially contributing. At shift change the patient is still intoxicated with a blood alcohol over 150 but he is no longer moving his arm and he will engage. He will need further metabolism and a consult to neurology to consider anticonvulsant different than Keppra. His care is turned over to Dr. Rivera. Departure - Departure Clinical Impression: Observed seizure-like activity, Alcohol intoxication delirium Chronic sinusitis Qualifiers: Sinusitis location: unspecified location Qualified Code(s): J32.9 - Chronic sinusitis, unspecified
[2022-09-13] MEDS ORDERED: cefTRIAXone 1 GM VIAL ONE (03:01)
[2022-09-13] MEDS ORDERED: PHENobarbital 65 MG/ML VIAL IV STA (12:55)
[2022-09-13 13:13] VITALS: BP 160/100
--- NOTE | 2022-10-02 12:55 | ED Physician Documentation ---
ED Addendum - Addendum Addendum: 10/02/22 12:48 Patient at change of shift is awake and conversant. he is having intermittent shakiness/wavering of the right whole arm from shoulder down, but not fingers. 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 He does not have it of leg. No facial twitching nor movement. Not clearly seizure, but may be neurologic tremor versus related to alcohol delirium/withdrawal 9rather than generalized shaking/tremor commonly seen in withdrawal). i feel treatment of the withdrawal most useful and that was when his tremor seemed to stop on recent prior admission for CECILLE. I typically use phenobarbital for alcohol withdrawal, so covers it potentially anyway. He has appt with pmd in 5 days, so defer further med treatments beyond that timeframe to pmd. Will rx pehnobard typical CECILLE dosing, with lorazepam prN, and Zofran/famotidine as well. He was given dose phenobarbital here and has no shakiness, HR is okay, and tremor is stopped for now. Seems to be adequate tretment with this for withdrawal symptoms and I anticipate doing well enough with outpt treatment. I offered trying to contact [facility] or [facility] detox, but he declined. Disposition; discharged home in stable condition. Diagnoses: alcohol dependence/abuse alcohol withdrawal symptoms altered mental status due to intoxication right arm tremor
== END 2022-09-13 15:23 | disposition home or self-care (01) ==
LOC: EDUNIT# → ED 23:44
DX: F10.121 Alcohol abuse with intoxication delirium (principal); Y90.6 Blood alcohol level of 120-199 mg/100 ml; F17.200 Nicotine dependence, unspecified, uncomplicated; J32.9 Chronic sinusitis, unspecified; R25.1 Tremor, unspecified
CPT/HCPCS: 36415; 70450; 71045; 80053; 80306; 80320; 81003; 83605; 83690; 85025; 87040; 87077; 87150; 87181; 93005; 96365; 96367; 96375; 96376; 99281; 99284; J2060; J3411; 81001; 87086

== ENCOUNTER 2023-02-11 10:17 | Outpatient (CLI) | payer OTHER | END 2023-02-11 23:59 | disposition critical access hospital (66) | LOC: EMS 10:17 | DX: R06.00 Dyspnea, unspecified (principal); R46.4 Slowness and poor responsiveness; I10 Essential (primary) hypertension; F10.10 Alcohol abuse, uncomplicated | CPT/HCPCS: A0425; A0429 ==

== ENCOUNTER 2023-02-11 10:37 | Emergency (ER) | payer OTHER ==
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
[2023-02-11 11:58] LABS: VBG PH 7.481 (7.31-7.41)
[2023-02-11 11:59] LABS: VBG BASE EXCESS 1.5 mmol/L (-2 - +2); VBG HCO3 23.9 mmol/L (23-28); VBG OXYGEN SATURATION 97.3 % (60-80); VBG PCO2 32.8 mmHg (41-51); VBG PO2 93.3 mmHg (25-47); VBG TOTAL CO2 24.9 mmol/L (24-29)
--- NOTE | 2023-02-11 12:00 | XRAY Report ---
PROCEDURE: Chest 1 View X-Ray INDICATIONS: dyspnea TECHNIQUE: One view of the chest was acquired. COMPARISON: None. FINDINGS: Surgical changes and devices: None. Lungs and pleura: No pleural effusions or pneumothorax. There is mild pulmonary vascular congestion. No focal infiltrate. Mediastinum: Mildly tortuous thoracic aorta is seen. Heart size is normal. Bones and chest wall: No suspicious bony lesions. Overlying soft tissues appear unremarkable. IMPRESSION: Mild congestion. No definite focal infiltrate. No pleural effusion or pneumothorax. Reviewed by: Cem Sanchez MD on 02/11/2023 11:59 AM PDT Approved by: Cem Sanchez MD on 02/11/2023 11:59 AM PDT Station ID: [id number]
[2023-02-11 12:02] LABS: BASOPHILS # (AUTO) 0.1 10^3/uL (0.0-0.1); BASOPHILS % (AUTO) 1.6 %; EOSINOPHILS # (AUTO) 0.1 10^3/uL (0.0-0.7); EOSINOPHILS % (AUTO) 1.6 %; HCT - HEMATOCRIT 52.9 % (42.0-52.0); HGB - HEMOGLOBIN 18.4 g/dL (14.0-18.0); LYMPHOCYTES # (AUTO) 1.9 10^3/uL (1.5-3.5); LYMPHOCYTES % (AUTO) 30.8 %; MEAN CORPUSCULAR HEMOGLOBIN 32.9 pg (27.0-31.0); MEAN CORPUSCULAR HGB CONC 34.8 g/dL (32.0-36.0); MEAN CORPUSCULAR VOLUME 94.6 fL (80.0-94.0); MEAN PLATELET VOLUME 9.6 fL (7.4-11.4); MONOCYTES # (AUTO) 0.5 10^3/uL (0.0-1.0); MONOCYTES % (AUTO) 7.9 %; NEUTROPHILS # (AUTO) 3.6 10^3/uL (1.5-6.6); NEUTROPHILS % (AUTO) 57.8 %; PLT - PLATELET COUNT 268 10^3/uL (130-450); RED BLOOD COUNT 5.59 10^6/uL (4.70-6.10); RED CELL DISTRIBUTION WIDTH 13.8 % (12.0-15.0); WHITE BLOOD COUNT 6.2 x10^3/uL (4.8-10.8)
[2023-02-11] MEDS ORDERED: SODIUM CHLORIDE 0.9% 1,000 ML IV STA (12:10)
[2023-02-11] MEDS ORDERED: THIAMINE INJ 100 MG in SODIUM CHLORIDE 0.9% 50 ML IV STA (12:10)
[2023-02-11 12:11] LABS: ALBUMIN 4.4 g/dL (3.2-5.5); ALBUMIN/GLOBULIN RATIO 1.4 (1.0-2.2); BILIRUBIN,TOTAL 0.6 mg/dL (0.2-1.0); CALCIUM 8.8 mg/dL (8.5-10.3); CREATININE 0.7 mg/dL (0.6-1.2); ETOH - ETHANOL 319.6 mg/dL; MAGNESIUM 2.4 mg/dL (1.7-2.8); POTASSIUM 3.8 mmol/L (3.5-5.0); TOTAL PROTEIN 7.5 g/dL (6.7-8.2)
--- NOTE | 2023-02-11 12:21 | CT Report ---
PROCEDURE: HEAD WO INDICATIONS: headache, ams TECHNIQUE: Noncontrast 4.5 mm thick angled axial sections acquired from the foramen magnum to the vertex. For r adiation dose reduction, the following was used: automated exposure control, adjustment of mA and/or kV according to patient size. COMPARISON: None. FINDINGS: Image quality: Excellent. CSF spaces: Basal cisterns are patent. No extra-axial fluid collections. Ventricles are normal in size and shape. Brain: No midline shift. No intracranial masses or hemorrhage. Age-related volume loss is seen. Gr ay-white matter interface is normal. Skull and face: Calvarium and visualized facial bones are intact, without suspicious lesions. Sinuses: Visualized sinuses and mastoids are clear. IMPRESSION: No acute intracranial pathology Related volume loss. Reviewed by: Cem Sanchez MD on 02/11/2023 12:20 PM PDT Approved by: Cem Sanchez MD on 02/11/2023 12:20 PM PDT Station ID: [id number]
[2023-02-11 14:10] LABS: MUDS CUTOFF CONCENTRATIONS CUTOFF CONC BELOW:
[2023-02-11] MEDS ORDERED: KETOROLAC 15 MG/ML VIAL IVP STA (14:13)
[2023-02-11 14:26] LABS: AMPHETAMINE SCREEN,URINE NEGATIVE (NEGATIVE); BARBITURATE SCREEN,UR NEGATIVE (NEGATIVE); BENZODIAZEPINES SCREEN, URINE NEGATIVE (NEGATIVE); COCAINE SCREEN URINE NEGATIVE (NEGATIVE); METHADONE SCREEN, URINE NEGATIVE (NEGATIVE); METHAMPHETAMINES SCREEN, URINE NEGATIVE (NEGATIVE); OPIATE SCREEN, URINE NEGATIVE (NEGATIVE); OXYCODONE SCREEN, URINE NEGATIVE (NEGATIVE); PROPOXYPHENE SCREEN, URINE NEGATIVE (NEGATIVE); THC CANNABINOID SCREEN, URINE NEGATIVE (NEGATIVE); TRICYCLIC ANTIDEPRESSANT,URINE NEGATIVE (NEGATIVE)
[2023-02-11] MEDS ORDERED: ACETAMINOPHEN 500 MG TABLET PO STA (15:33)
[2023-02-11] MEDS ORDERED: METOCLOPRAMIDE 10 MG/2 ML VIAL IVP STA (15:44)
[2023-02-11 15:54] VITALS: BP 129/83
== END 2023-02-11 15:54 | disposition home or self-care (01) ==
LOC: EDUNIT# → ED 10:37
DX: R06.02 Shortness of breath (principal); R51.9 Headache, unspecified; F10.129 Alcohol abuse with intoxication, unspecified; Y90.8 Blood alcohol level of 240 mg/100 ml or more; F17.200 Nicotine dependence, unspecified, uncomplicated
CPT/HCPCS: 36415; 70450; 71045; 80053; 80306; 80320; 82140; 82803; 83690; 83735; 83880; 85025; 85379; 93005; 96365; 96375; 99284; A9270; J2765; J3411; J7040

== ENCOUNTER 2023-03-20 18:10 | Emergency (ER) | payer OTHER ==
[2023-03-20] MEDS ORDERED: SODIUM CHLORIDE 0.9% 1,000 ML IV STA (18:37)
[2023-03-20 18:53] LABS: BASOPHILS # (AUTO) 0.1 10^3/uL (0.0-0.1); EOSINOPHILS # (AUTO) 0.1 10^3/uL (0.0-0.7); EOSINOPHILS % (AUTO) 1.4 %; HCT - HEMATOCRIT 54.3 % (42.0-52.0); HGB - HEMOGLOBIN 18.8 g/dL (14.0-18.0); LYMPHOCYTES % (AUTO) 28.9 %; MEAN CORPUSCULAR HEMOGLOBIN 33.6 pg (27.0-31.0); MEAN CORPUSCULAR HGB CONC 34.6 g/dL (32.0-36.0); MEAN PLATELET VOLUME 9.7 fL (7.4-11.4); MONOCYTES # (AUTO) 0.4 10^3/uL (0.0-1.0); MONOCYTES % (AUTO) 5.9 %; NEUTROPHILS # (AUTO) 4.3 10^3/uL (1.5-6.6); NEUTROPHILS % (AUTO) 61.2 %; PLT - PLATELET COUNT 245 10^3/uL (130-450); WHITE BLOOD COUNT 7.1 x10^3/uL (4.8-10.8)
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
[2023-03-20 19:04] LABS: ALBUMIN 4.8 g/dL (3.2-5.5); ALBUMIN/GLOBULIN RATIO 1.2 (1.0-2.2); BILIRUBIN,TOTAL 0.5 mg/dL (0.2-1.0); CALCIUM 9.3 mg/dL (8.5-10.3); CREATININE 0.9 mg/dL (0.6-1.2); ETOH - ETHANOL 203.6 mg/dL; POTASSIUM 4.4 mmol/L (3.5-5.0); TOTAL PROTEIN 8.7 g/dL (6.7-8.2)
[2023-03-20 19:27] LABS: PT - PROTHROMBIN TIME 10.7 secs (9.9-12.6)
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
[2023-03-20] MEDS ORDERED: oxyCODONE 5 MG TABLET PO STA (20:50)
[2023-03-20] MEDS ORDERED: TETANUS/DIPHTHERIA TOXOID 0.5 ML SYRINGE IM ONE (20:51)
[2023-03-20] MEDS ORDERED: AMOX/CLAV 875 MG/125 MG TABLET PO STA (20:51)
[2023-03-20 21:11] VITALS: BP 164/129
== END 2023-03-20 21:13 | disposition home or self-care (01) ==
LOC: ED 18:10
DX: S02.92XA Unspecified fracture of facial bones, initial encounter for closed fracture (principal); Y29.XXXA Contact with blunt object, undetermined intent, initial encounter; F10.120 Alcohol abuse with intoxication, uncomplicated; Y90.7 Blood alcohol level of 200-239 mg/100 ml; I10 Essential (primary) hypertension; E78.00 Pure hypercholesterolemia, unspecified; F17.200 Nicotine dependence, unspecified, uncomplicated; Z23 Encounter for immunization; Z79.899 Other long term (current) drug therapy
CPT/HCPCS: 36415; 70450; 70486; 72125; 80053; 80320; 85025; 85610; 90471; 90714; 93005; 99284; A9270

== ENCOUNTER 2023-06-10 19:21 | Outpatient (CLI) | payer OTHER | END 2023-06-10 23:59 | disposition critical access hospital (66) | LOC: EMS 19:21 | DX: R05.9 Cough, unspecified (principal); R45.850 Homicidal ideations | CPT/HCPCS: A0425; A0427 ==

== ENCOUNTER 2023-06-10 19:40 | Inpatient (IN) | payer OTHER ==
[2023-06-10] MEDS ORDERED: BENZONATATE 100 MG CAPSULE PO STA (19:46)
--- NOTE | 2023-06-10 19:48 | ED Physician Documentation ---
History of Present Illness - Stated complaint Stated Complaint: SOA - History obtained from History obtained from: EMS - Additonal information Additional information: 58-year-old gentleman brought in by ambulance for coughing fit the reportedly started an hour and a half ago. All of the history is from the EMS staff as patient is not talking to me. He does smell of alcohol and EMS states there was alcohol in the room where he was. EMS states that his brother called the ambulance for him. He had good prehospital saturations. They trialed a DuoNeb which did not change anything. PD PAST MEDICAL HISTORY - Past Medical History Cardiovascular: Hypertension, High cholesterol Respiratory: Pneumonia Endocrine/Autoimmune: None GI: None : None HEENT: Chronic sinusitis Psych: Panic attacks Musculoskeletal: None Derm: None - Past Surgical History Past Surgical History: Yes - Present Medications Home Medications: Ambulatory Orders Medication Instructions Recorded Confirmed Atorvastatin [Lipitor] 10 mg PO QPM 11/10/14 08/29/15 Chlorthalidone 1 tab PO DAILY 08/29/15 08/29/15 Metoprolol Tartrate 50 mg PO BID 08/29/15 08/29/15 Ondansetron Odt [Zofran] 4 mg TL Q6H PRN #10 tablet 12/27/21 Famotidine [Pepcid] 20 mg PO BID #20 tablet 09/13/22 LORazepam [Ativan] 1 mg PO BID PRN #12 tablet 09/13/22 Ondansetron Odt [Zofran] 4 mg TL Q6H PRN #10 tablet 09/13/22 PHENobarbitaL [Phenobarbital] 30 mg PO DAILY 8 Days #8 tablet 09/13/22 Amox/Clav 875/125 [Augmentin] 1 tab PO Q12H #20 tablet 03/20/23 Oxycodone HCl/Acetaminophen 1 - 2 each PO Q6H PRN #20 tablet 03/20/23 [Percocet 5-325 mg Tablet] MDD 6 tabs Amoxicillin 2 tab PO TID #30 cap 06/10/23 Azithromycin [Zithromax] 1 tab PO DAILY #4 tab 06/10/23 - Allergies Allergies/Adverse Reactions: Allergies Allergy/AdvReac Type Severity Reaction Status Date / Time codeine Allergy Unknown Verified 06/10/23 19:55 - Social History Does the pt smoke?: Yes Smoking Status: Current every day smoker Does the pt drink ETOH?: Yes Does the pt have substance abuse?: No - Immunizations Immunizations are current?: Yes PD ED PE NORMAL - Vitals Vital signs reviewed: Yes - General General: Other (Frequent coughing and smelling of tobacco and alcohol, but not talking. He does follow simple commands but falls asleep easily.) - HEENT HEENT: Other (Eye patch on the right eye) - Neck Neck: Supple, no meningeal sign, No bony TTP - Cardiac Cardiac: RRR, No murmur - Respiratory Respiratory: Other (Frequent coughing but clear lungs) - Abdomen Abdomen: Non tender - Neuro Eye Opening: Spontaneous Motor: Obeys Commands Verbal: None GCS Score: 11 Results - Vitals Vitals: Vital Signs - 24 hr 06/10/23 06/10/23 06/10/23 19:40 20:02 20:14 Temperature 36.7 C Heart Rate 117 H 112 H 108 H Respiratory 32 H 30 H 24 Rate Blood Pressure 144/95 H 120/93 H 120/93 H O2 Saturation 96 97 5 L If not protocol : Oxygen Flow, liters/minute 06/10/23 06/10/23 06/10/23 20:50 20:52 21:03 Temperature Heart Rate 128 H 128 H 118 H Respiratory 24 21 18 Rate Blood Pressure 155/116 H 149/119 H 127/108 H O2 Saturation 97 89 L 94 If not protocol 2 : Oxygen Flow, liters/minute 06/10/23 06/10/23 06/10/23 21:05 21:13 21:24 Temperature 36.3 C L 36.2 C L Heart Rate 114 H 113 H 122 H Respiratory 19 21 16 Rate Blood Pressure 127/108 H 103/74 127/108 H O2 Saturation 93 93 95 If not protocol 2 2 2 : Oxygen Flow, liters/minute 06/10/23 06/10/23 21:28 21:38 Temperature 36.8 C Heart Rate 112 H 111 H Respiratory 20 21 Rate Blood Pressure 101/74 101/74 O2 Saturation 93 94 If not protocol 2 2 : Oxygen Flow, liters/minute Oxygen O2 Source Nasal cannula - Labs Labs: Laboratory Tests 06/10/23 06/10/23 06/10/23 19:48 19:48 19:50 WBC 10.2 RBC 5.43 Hgb 18.4 H Hct 52.8 H MCV 97.2 H MCH 33.9 H MCHC 34.8 RDW 14.9 Plt Count 304 MPV 9.5 Neut # (Auto) 6.3 Lymph # (Auto) 2.9 Lagrange # (Auto) 0.7 Eos # (Auto) 0.1 Baso # (Auto) 0.2 H Absolute Nucleated RBC 0.00 Nucleated RBC % 0.0 Sodium 139 Potassium 3.9 Chloride 105 Carbon Dioxide 17 L Anion Gap 17.0 H BUN 13 Creatinine 0.9 Estimated GFR (MDRD) 87 L Glucose 98 Calcium 9.2 Magnesium 2.0 Total Bilirubin 0.4 AST 22 ALT 17 Alkaline Phosphatase 83 Total Creatine Kinase 92 Total Protein 7.6 Albumin 4.4 Globulin 3.2 Albumin/Globulin Ratio 1.4 Lipase 51 TSH 3.08 Urine Color Urine Clarity Urine pH Ur Specific Congers Urine Protein Urine Glucose (UA) Urine Ketones Urine Occult Blood Urine Nitrite Urine Bilirubin Urine Urobilinogen Ur Leukocyte Esterase Ur Microscopic Review Urine Culture Comments Nasal Adenovirus (PCR) NOT DETECTED Nasal B. parapertussis DNA (PCR) NOT DETECTED Nasal Coronavir 229E PCR NOT DETECTED Nasal Coronavir HKU1 PCR NOT DETECTED Nasal Coronavir NL63 PCR NOT DETECTED Nasal Coronavir OC43 PCR NOT DETECTED Nasal Enterovir/Rhinovir PCR NOT DETECTED Nasal Influenza B PCR NOT DETECTED Nasal Influenza A PCR NOT DETECTED Nasal Parainfluen 1 PCR NOT DETECTED Nasal Parainfluen 2 PCR NOT DETECTED Nasal Parainfluen 3 PCR NOT DETECTED Nasal Parainfluen 4 PCR NOT DETECTED Nasal RSV (PCR) NOT DETECTED Nasal B.pertussis DNA PCR NOT DETECTED Nasal C.pneumoniae (PCR) NOT DETECTED Eric Human Metapneumo PCR NOT DETECTED Nasal M.pneumoniae (PCR) NOT DETECTED Nasal SARS-CoV-2 (PCR) NOT DETECTED Salicylates < 1.5 Acetaminophen < 0 L Ethyl Alcohol 256.0 06/10/23 21:20 WBC RBC Hgb Hct MCV MCH MCHC RDW Plt Count MPV Neut # (Auto) Lymph # (Auto) [place] # (Auto) Eos # (Auto) Baso # (Auto) Absolute Nucleated RBC Nucleated RBC % Sodium Potassium Chloride Carbon Dioxide Anion Gap BUN Creatinine Estimated GFR (MDRD) Glucose Calcium Magnesium Total Bilirubin AST ALT Alkaline Phosphatase Total Creatine Kinase Total Protein Albumin Globulin Albumin/Globulin Ratio Lipase TSH Urine Color YELLOW Urine Clarity CLEAR Urine pH 5.5 Ur Specific Congers 1.020 Urine Protein NEGATIVE Urine Glucose (UA) NEGATIVE Urine Ketones NEGATIVE Urine Occult Blood NEGATIVE Urine Nitrite NEGATIVE Urine Bilirubin NEGATIVE Urine Urobilinogen 0.2 (NORMAL) Ur Leukocyte Esterase NEGATIVE Ur Microscopic Review NOT INDICATED Urine Culture Comments NOT INDICATED Nasal Adenovirus (PCR) Nasal B. parapertussis DNA (PCR) Nasal Coronavir 229E PCR Nasal Coronavir HKU1 PCR Nasal Coronavir NL63 PCR Nasal Coronavir OC43 PCR Nasal Enterovir/Rhinovir PCR Nasal Influenza B PCR Nasal Influenza A PCR Nasal Parainfluen 1 PCR Nasal Parainfluen 2 PCR Nasal Parainfluen 3 PCR Nasal Parainfluen 4 PCR Nasal RSV (PCR) Nasal B.pertussis DNA PCR Nasal C.pneumoniae (PCR) Eric Human Metapneumo PCR Nasal M.pneumoniae (PCR) Nasal SARS-CoV-2 (PCR) Salicylates Acetaminophen Ethyl Alcohol - Rads (name of study) Chest x-ray demonstrating mild chronic interstitial prominence and possible left basilar pneumonia. Relevant Findings:: Final report received, EMP independent interpretation of test PD Medical Decision Making - ED course ED course: 58-year-old gentleman presents with alcohol intoxication for coughing fit. Tessalon was ordered and reportedly per the nurse he spit them out. A while later he got out of bed and lowered himself to the ground. He was fighting with staff and would not respond to verbal de-escalation. A staff alert was called and he was brought back into bed and chemical restraint was begun and he was still fighting with the staff. Prehospital there was a concern about SI or HI, but the patient is unable to cooperate with any specific history regarding that right now. Chest x-ray is showing possible lipase or pneumonia and he is treated here with Rocephin and Zithromax. I wrote prescriptions presuming eventual discharge but care to overnight emergency physician at shift change pending sobriety, adequate history, and addressing concern about SI or HI. Departure - Departure Clinical Impression: Coughing, Alcohol intoxication delirium, Pneumonia Condition: Good Record reviewed to determine appropriate education?: Yes Instructions: ED Alcohol Intoxication, ED Pneumonia Adult Prescriptions: Amoxicillin 2 tab PO TID #30 cap Azithromycin [Zithromax] 1 tab PO DAILY #4 tab Comments: Abstain from alcohol. You do have a mild pneumonia which is causing the cough and we wrote antibiotics for that. Call your doctor to arrange a follow-up appointment, make the next available appointment. In the interim, return anytime if worse or if new symptoms develop.
[2023-06-10 19:53] LABS: BASOPHILS # (AUTO) 0.2 10^3/uL (0.0-0.1); BASOPHILS % (AUTO) 1.6 %; EOSINOPHILS # (AUTO) 0.1 10^3/uL (0.0-0.7); EOSINOPHILS % (AUTO) 1.3 %; HCT - HEMATOCRIT 52.8 % (42.0-52.0); HGB - HEMOGLOBIN 18.4 g/dL (14.0-18.0); LYMPHOCYTES # (AUTO) 2.9 10^3/uL (1.5-3.5); LYMPHOCYTES % (AUTO) 28.3 %; MEAN CORPUSCULAR HEMOGLOBIN 33.9 pg (27.0-31.0); MEAN CORPUSCULAR HGB CONC 34.8 g/dL (32.0-36.0); MEAN CORPUSCULAR VOLUME 97.2 fL (80.0-94.0); MEAN PLATELET VOLUME 9.5 fL (7.4-11.4); MONOCYTES # (AUTO) 0.7 10^3/uL (0.0-1.0); MONOCYTES % (AUTO) 7.1 %; NEUTROPHILS # (AUTO) 6.3 10^3/uL (1.5-6.6); NEUTROPHILS % (AUTO) 61.3 %; PLT - PLATELET COUNT 304 10^3/uL (130-450); RED BLOOD COUNT 5.43 10^6/uL (4.70-6.10); RED CELL DISTRIBUTION WIDTH 14.9 % (12.0-15.0); WHITE BLOOD COUNT 10.2 x10^3/uL (4.8-10.8)
--- NOTE | 2023-06-10 20:03 | XRAY Report ---
PROCEDURE: Chest 1 View X-Ray INDICATIONS: coughing TECHNIQUE: One view of the chest was acquired. COMPARISON: Prior recent chest plain film dated 02/11/2023.. FINDINGS: Surgical changes and devices: None. Lungs and pleura: No pleural effusions or pneumothorax. Lungs are chronically mildly abnormal with a mild interstitial prominence. At the left lung base there is slight stranding that blurs the left d iaphragmatic border, a finding not previously present. This is suggestive of mild or early pneumonia in that area.. Mediastinum: Mediastinal contours appear normal. Heart size is normal. Bones and chest wall: No suspicious bony lesions. Overlying soft tissues appear unremarkable. IMPRESSION: Chronic mild interstitial prominence and new finding of blurring of the diaphragmatic border on the l eft suggestive of mild or early pneumonia in that area in this clinical circumstance. Reviewed by: Tom Issa MD on 06/10/2023 8:02 PM PDT Approved by: Tom Issa MD on 06/10/2023 8:02 PM PDT Station ID: [id number]
[2023-06-10 20:13] LABS: ALBUMIN 4.4 g/dL (3.2-5.5); CK- CREATINE KINASE 92 IU/L (30-223); LIPASE 51 U/L (11-82)
[2023-06-10 20:16] LABS: ALBUMIN/GLOBULIN RATIO 1.4 (1.0-2.2); ALKALINE PHOSPHATASE 83 IU/L (42-121); ALT ALANINE AMINOTRANSFERASE 17 IU/L (10-60); AST ASPARTATE AMINOTRANSFERASE 22 IU/L (10-42); BILIRUBIN,TOTAL 0.4 mg/dL (0.2-1.0); BUN - BLOOD UREA NITROGEN 13 mg/dL (6-20); CALCIUM 9.2 mg/dL (8.5-10.3); CARBON DIOXIDE - CO2 17 mmol/L (21-32); CHLORIDE 105 mmol/L (101-111); CREATININE 0.9 mg/dL (0.6-1.3); GFR - MDRD 87 (>89); GLUCOSE 98 mg/dL (74-104); POTASSIUM 3.9 mmol/L (3.5-4.5); SODIUM 139 mmol/L (135-145); TOTAL PROTEIN 7.6 g/dL (6.4-8.9)
[2023-06-10 20:19] LABS: ACETAMINOPHEN < 0 ug/mL (10-30); SALICYLATE < 1.5 mg/dL
[2023-06-10 20:22] LABS: THYROID STIMULATING HORMONE 3.08 uIU/mL (0.34-5.60)
[2023-06-10] MEDS ORDERED: KETAMINE 500 MG/10 ML VIAL IVP STA (20:44)
[2023-06-10] MEDS ORDERED: LORazepam 2 MG/ML VIAL IVP STA (20:44)
[2023-06-10] MEDS ORDERED: HALOPERIDOL 5 MG/ML VIAL IVP STA (20:44)
[2023-06-10 20:54] LABS: B. PARAPERTUSSIS- RESP PCR PAN NOT DETECTED; B. PERTUSSIS- RESP PCR PANEL NOT DETECTED; C. PNEUMONIAE- RESP PCR PANEL NOT DETECTED; CORONAVIRUS 229E-RESP PCR NOT DETECTED; CORONAVIRUS HKU1-RESP PCR NOT DETECTED; CORONAVIRUS NL63-RESP PCR NOT DETECTED; CORONAVIRUS OC43-RESP PCR NOT DETECTED; HUMAN METAPNEUMOVIRUS NOT DETECTED; INFLUENZA A- RESP PCR PANEL NOT DETECTED; INFLUENZA B - RESP PCR PANEL NOT DETECTED; M. PNEUMONIAE- RESP PCR PANEL NOT DETECTED; PARAINFLUENZA VIRUS 1 NOT DETECTED; PARAINFLUENZA VIRUS 2 NOT DETECTED; PARAINFLUENZA VIRUS 3 NOT DETECTED; PARAINFLUENZA VIRUS 4 NOT DETECTED; RHINOVIRUS/ENTEROVIRUS NOT DETECTED; RSV- RESP PCR PANEL NOT DETECTED; SARS-CoV-2 -RESP PCR PANEL NOT DETECTED
[2023-06-10] MEDS ORDERED: KETAMINE 500 MG/10 ML VIAL ONE (20:56)
--- NOTE | 2023-06-10 20:57 | ED Physician Documentation ---
Restraint Pavi-ha-Rdds - Immediate Situation Face to Face Evaluation Date: 06/10/23 Face to Face Evaluation Time: 20:56 Restraint Classification: Violent, chemical w/ physical hold Restraint Type: Chemical - Patient's Reaction & Behaviors Safety: Non-compliant, Unable to Follow Commands Harm: Potential harm to self, Potential harm to others Physical: Aggressive behavior, Fighting restraints - Behavioral Condition Attitude: Indifferent Behavior: Belligerent, Agitated Orientation: Non-responsive, Disoriented to all Mood: Labile, Angry - Evaluation System status changes from initial ED note: Fighting staff, belligerent, will not follow commands. Will not respond to verbal de-escalation attempts or alternative therapies. Pertinent History/Illicit Drugs/Medications/Results: ALCOHOL - Plan Need to Continue or Terminate Violent or Chemical Restraint: Hopefully as the alcohol metabolizes he will become more cooperative and a be tter historian and able to cooperate with staff and not be a danger to himself and others.
[2023-06-10 21:25] LABS: MUDS CUTOFF CONCENTRATIONS CUTOFF CONC BELOW:
[2023-06-10 21:32] LABS: BILIRUBIN,URINE NEGATIVE (NEGATIVE); GLUCOSE, URINE (UA) NEGATIVE (NEGATIVE); KETONES,URINE (UA) NEGATIVE (NEGATIVE); LEUKOCYTE ESTERASE, URINE NEGATIVE (NEGATIVE); NITRITE,URINE NEGATIVE (NEGATIVE); OCCULT BLOOD,URINE NEGATIVE (NEGATIVE); PH,URINE 5.5 PH (5.0-7.5); PROTEIN,URINE NEGATIVE (NEGATIVE); UROBILINOGEN,URINE 0.2 (NORMAL) E.U./dL (NORMAL)
[2023-06-10 21:33] LABS: CLARITY,URINE CLEAR (CLEAR)
[2023-06-10] MEDS ORDERED: cefTRIAXone 1 GM VIAL IVP STA (21:42)
[2023-06-10] MEDS ORDERED: AZITHROMYCIN INJ 500 MG in SODIUM CHLORIDE 0.9% 250 ML IV STA (21:42)
[2023-06-10 21:43] LABS: AMPHETAMINE SCREEN,URINE NEGATIVE (NEGATIVE); BARBITURATE SCREEN,UR NEGATIVE (NEGATIVE); BENZODIAZEPINES SCREEN, URINE NEGATIVE (NEGATIVE); COCAINE SCREEN URINE NEGATIVE (NEGATIVE); METHADONE SCREEN, URINE NEGATIVE (NEGATIVE); METHAMPHETAMINES SCREEN, URINE NEGATIVE (NEGATIVE); OPIATE SCREEN, URINE NEGATIVE (NEGATIVE); OXYCODONE SCREEN, URINE NEGATIVE (NEGATIVE); PROPOXYPHENE SCREEN, URINE NEGATIVE (NEGATIVE); THC CANNABINOID SCREEN, URINE NEGATIVE (NEGATIVE); TRICYCLIC ANTIDEPRESSANT,URINE NEGATIVE (NEGATIVE)
--- NOTE | 2023-06-11 01:09 | ED Physician Documentation ---
ED Addendum - Addendum Addendum: 06/11/23 01:08 Patient is now clinically sober, awake, alert, responding appropriately to questions. He denies suicidal ideation, but when asked if he wants to hurt other people he says "yes". When asked what the patient means he says "I get very angry and when people say the wrong things to me I want to hurt them". I asked if the patient thinks that if he were to be discharged from the hospital if he would hurt people, he says "yes". He says verbatim " I need to be in a psych [facility]". Will contact telepsych
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
[2023-06-11] MEDS ORDERED: FOLIC ACID 1 MG TABLET PO STA (04:08)
[2023-06-11] MEDS ORDERED: THIAMINE 100 MG TABLET PO STA (04:08)
[2023-06-11] MEDS ORDERED: PHENobarbital 65 MG/ML VIAL IV STA ×2 (04:08→14:48)
[2023-06-11] MEDS ORDERED: NICOTINE 21 MG PATCH TOP STA (14:12)
[2023-06-11 17:58] LABS: BASOPHILS # (AUTO) 0.1 10^3/uL (0.0-0.1); BASOPHILS % (AUTO) 1.3 %; EOSINOPHILS # (AUTO) 0.1 10^3/uL (0.0-0.7); EOSINOPHILS % (AUTO) 0.6 %; HGB - HEMOGLOBIN 16.4 g/dL (14.0-18.0); LYMPHOCYTES # (AUTO) 1.2 10^3/uL (1.5-3.5); LYMPHOCYTES % (AUTO) 14.6 %; MEAN CORPUSCULAR HEMOGLOBIN 33.9 pg (27.0-31.0); MEAN CORPUSCULAR HGB CONC 34.2 g/dL (32.0-36.0); MEAN CORPUSCULAR VOLUME 99.2 fL (80.0-94.0); MEAN PLATELET VOLUME 9.7 fL (7.4-11.4); MONOCYTES # (AUTO) 0.8 10^3/uL (0.0-1.0); MONOCYTES % (AUTO) 10.1 %; NEUTROPHILS # (AUTO) 5.8 10^3/uL (1.5-6.6); PLT - PLATELET COUNT 219 10^3/uL (130-450); RED BLOOD COUNT 4.84 10^6/uL (4.70-6.10); RED CELL DISTRIBUTION WIDTH 14.6 % (12.0-15.0)
[2023-06-11 18:41] LABS: ALBUMIN 3.9 g/dL (3.2-5.5); ALBUMIN/GLOBULIN RATIO 1.5 (1.0-2.2); ALKALINE PHOSPHATASE 74 IU/L (42-121); ALT ALANINE AMINOTRANSFERASE 15 IU/L (10-60); AST ASPARTATE AMINOTRANSFERASE 17 IU/L (10-42); BILIRUBIN,TOTAL 0.4 mg/dL (0.2-1.0); BUN - BLOOD UREA NITROGEN 15 mg/dL (6-20); CALCIUM 9.2 mg/dL (8.5-10.3); CARBON DIOXIDE - CO2 30 mmol/L (21-32); CHLORIDE 101 mmol/L (101-111); CREATININE 1.2 mg/dL (0.6-1.3); ETOH - ETHANOL < 10.0 mg/dL; GFR - MDRD 62 (>89); GLUCOSE 133 mg/dL (74-104); LIPASE 51 U/L (11-82); POTASSIUM 3.8 mmol/L (3.5-4.5); SODIUM 137 mmol/L (135-145); TOTAL PROTEIN 6.5 g/dL (6.4-8.9)
--- NOTE | 2023-06-11 18:52 | ED Physician Documentation ---
ED Addendum - Addendum Addendum: 06/11/23 18:51 Patient was signed out to me by Dr. Story, repeat labs were drawn to ensure that they are improving as expected. His CBC is normal other than a mildly elevated MCV. His anion gap is closed. CO2 improved. No other electrolyte abnormalities. His ethanol level is 0. There are no beds available in the region, he has been declined by several facilities, will continue to board the patient awaiting placement.
[2023-06-11] MEDS ORDERED: LORazepam 2 MG/ML VIAL IVP STA (20:57)
[2023-06-12] MEDS ORDERED: LORazepam 2 MG/ML VIAL IVP STA (08:52)
[2023-06-12] MEDS ORDERED: PHENobarbital 65 MG/ML VIAL IV STA (08:53)
[2023-06-12] MEDS ORDERED: LACTATED RINGERS 1,000 ML IV STA (08:57)
[2023-06-12] MEDS ORDERED: NICOTINE 14 MG PATCH TOP SCH ×2 (09:00→13:17)
[2023-06-12] MEDS ORDERED: AMOX/CLAV 500 MG/125 MG TABLET PO SCH (09:00)
[2023-06-12] MEDS ORDERED: ALBUTEROL 1 PUFF INH SCH (09:00)
--- NOTE | 2023-06-12 09:12 | ED Physician Documentation ---
ED Addendum - Addendum Addendum: 06/12/23 09:09 The patient on change of shift have been still sleeping. He woke very anxious and appearing disoriented wide-eyed and anxious. He was having rhythmic movement of his arms and legs that did not look seizure-like but more agitated. He was not answering questions verbally. He did rn transport my hand when I held it for him. Otherwise not really following commands. He was tachycardic and sweaty. He appeared to be having significant withdrawal by my assumption. We can recheck electrolytes as well though the has been good the last 2 days. His kidney function had decreased slightly from 2 days ago to yesterday. Unclear his fluid intake overnight. We can run some IV fluids. He was given Ativan 1 mg IV to help with withdrawal symptoms apparently. He had not received any phenobarb since yesterday so I ordered 130 mg IV and then a scheduled dosing 65 mg twice daily. There has been question of the pneumonia on x-ray. His lung sounds are clear at this time but we can order MDI inhalers when he is able to cooperate. And continue antibiotics. He had had a dose a day and a half ago I believe but we will order scheduled antibiotics as well. At this point we will check CIWA scoring and degree of agitation. He had not had much alcohol withdrawal medications since yesterday so this seems reasonable at this point. We will see how well controlled it is. If he meets a certain CIWA scoring level we may consider admission rather than detox.
[2023-06-12] MEDS ORDERED: ALBUTEROL 1 PUFF INH PRN (09:13)
[2023-06-12] MEDS ORDERED: LORazepam 2 MG/ML VIAL IVP PRN ×2 (09:14→11:14)
[2023-06-12] MEDS: THIAMINE 100 MG TABLET PO SCH ×3 (09:21→21:00)
[2023-06-12] MEDS ORDERED: SODIUM CHLORIDE FLUSH 0.9% 10 ML SYRINGE IVP PRN (11:09)
[2023-06-12 11:27] LABS: BASOPHILS # (AUTO) 0.1 10^3/uL (0.0-0.1); BASOPHILS % (AUTO) 0.8 %; EOSINOPHILS % (AUTO) 0.7 %; HCT - HEMATOCRIT 46.8 % (42.0-52.0); HGB - HEMOGLOBIN 16.1 g/dL (14.0-18.0); LYMPHOCYTES # (AUTO) 0.9 10^3/uL (1.5-3.5); MEAN CORPUSCULAR HEMOGLOBIN 34.1 pg (27.0-31.0); MEAN CORPUSCULAR HGB CONC 34.4 g/dL (32.0-36.0); MEAN CORPUSCULAR VOLUME 99.2 fL (80.0-94.0); MEAN PLATELET VOLUME 9.7 fL (7.4-11.4); MONOCYTES # (AUTO) 0.6 10^3/uL (0.0-1.0); MONOCYTES % (AUTO) 10.2 %; NEUTROPHILS # (AUTO) 4.5 10^3/uL (1.5-6.6); PLT - PLATELET COUNT 202 10^3/uL (130-450); RED BLOOD COUNT 4.72 10^6/uL (4.70-6.10); RED CELL DISTRIBUTION WIDTH 14.5 % (12.0-15.0); WHITE BLOOD COUNT 6.1 x10^3/uL (4.8-10.8)
[2023-06-12 11:40] LABS: ALBUMIN 3.7 g/dL (3.2-5.5); ALBUMIN/GLOBULIN RATIO 1.5 (1.0-2.2); BILIRUBIN,TOTAL 0.5 mg/dL (0.2-1.0); CREATININE 0.8 mg/dL (0.6-1.3); POTASSIUM 4.3 mmol/L (3.5-4.5); TOTAL PROTEIN 6.2 g/dL (6.4-8.9)
[2023-06-12] MEDS: PRENATAL VITAMIN TABLET PO SCH (12:45)
[2023-06-12] MEDS: chlordiazePOXIDE 25 MG CAPSULE PO SCH ×3 (12:46→23:25)
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
[2023-06-12] MEDS: METOPROLOL SUCCINATE 25 MG TABLET PO SCH ×2 (13:33→20:57)
[2023-06-12] MEDS: NICOTINE 21 MG PATCH TOP SCH (13:33)
[2023-06-12] MEDS: LORazepam 2 MG/ML VIAL IVP PRN ×2 (15:40→15:55)
[2023-06-12] MEDS: SODIUM CHLORIDE FLUSH 0.9% 10 ML SYRINGE IVP SCH ×2 (16:00→23:23)
--- NOTE | 2023-06-12 17:31 | PHARMACY PROGRESS NOTE ---
- Best Possible Medication History Admit Date and Time: 06/12/23 1136 Processed by: Pharmacy Medication History completed: Yes Patient Interview: Completed Secondary Source(s): Pharmacy records As the person ultimately responsible for medication therapy, providers are able to order a medication from an existing home medication list in [facility] via the "Reconcile Routine" prior to Confirmation of that medication by client support associate. Such practice is discouraged except when the physician, in their clinical judgment, deems that a medical need exists for a medication without regard to previous use.
[2023-06-12] MEDS: FAMOTIDINE 20 MG TABLET PO SCH (20:56)
[2023-06-12] MEDS: PHENobarbitaL 32.4 MG TABLET PO SCH ×2 (20:56→21:52)
[2023-06-12] MEDS: AMOX/CLAV 875 MG/125 MG TABLET PO SCH (20:56)
[2023-06-13 05:08] LABS: BASOPHILS # (AUTO) 0.1 10^3/uL (0.0-0.1); BASOPHILS % (AUTO) 1.2 %; EOSINOPHILS # (AUTO) 0.1 10^3/uL (0.0-0.7); EOSINOPHILS % (AUTO) 1.5 %; HCT - HEMATOCRIT 46.5 % (42.0-52.0); HGB - HEMOGLOBIN 16.3 g/dL (14.0-18.0); LYMPHOCYTES # (AUTO) 1.4 10^3/uL (1.5-3.5); LYMPHOCYTES % (AUTO) 18.8 %; MEAN CORPUSCULAR HEMOGLOBIN 34.6 pg (27.0-31.0); MEAN CORPUSCULAR HGB CONC 35.1 g/dL (32.0-36.0); MEAN CORPUSCULAR VOLUME 98.7 fL (80.0-94.0); MEAN PLATELET VOLUME 10.2 fL (7.4-11.4); MONOCYTES # (AUTO) 0.6 10^3/uL (0.0-1.0); MONOCYTES % (AUTO) 8.9 %; NEUTROPHILS % (AUTO) 69.2 %; PLT - PLATELET COUNT 193 10^3/uL (130-450); RED BLOOD COUNT 4.71 10^6/uL (4.70-6.10); RED CELL DISTRIBUTION WIDTH 14.4 % (12.0-15.0); WHITE BLOOD COUNT 7.2 x10^3/uL (4.8-10.8)
[2023-06-13] MEDS: chlordiazePOXIDE 25 MG CAPSULE PO SCH ×3 (05:12→17:07)
[2023-06-13] MEDS: THIAMINE 100 MG TABLET PO SCH ×2 (05:12→11:34)
[2023-06-13 05:15] LABS: CALCIUM, IONIZED 1.13 mmol/L (1.15-1.33); VBG PH 7.422 (7.31-7.41)
[2023-06-13] MEDS: LORazepam 2 MG/ML VIAL IVP PRN ×4 (05:15→23:49)
[2023-06-13 05:23] LABS: ALBUMIN 3.8 g/dL (3.2-5.5); ALKALINE PHOSPHATASE 69 IU/L (42-121); ALT ALANINE AMINOTRANSFERASE 15 IU/L (10-60); AST ASPARTATE AMINOTRANSFERASE 18 IU/L (10-42); BILIRUBIN,DIRECT < 0.10 mg/dL (0.03-0.18); BILIRUBIN,TOTAL 0.5 mg/dL (0.2-1.0); BUN - BLOOD UREA NITROGEN 10 mg/dL (6-20); CALCIUM 8.9 mg/dL (8.5-10.3); CARBON DIOXIDE - CO2 26 mmol/L (21-32); CHLORIDE 102 mmol/L (101-111); CREATININE 0.7 mg/dL (0.6-1.3); GFR - MDRD 116 (>89); GLUCOSE 102 mg/dL (74-104); MAGNESIUM 1.9 mg/dL (1.7-2.3); PHOSPHORUS 2.9 mg/dL (2.5-5.0); POTASSIUM 3.7 mmol/L (3.5-4.5); SODIUM 134 mmol/L (135-145); TOTAL PROTEIN 6.4 g/dL (6.4-8.9)
[2023-06-13] MEDS ORDERED: chlordiazePOXIDE 25 MG CAPSULE PO SCH (07:43)
[2023-06-13] MEDS ORDERED: POTASSIUM CHLORIDE 20 MEQ TABLET PO ONE (08:00)
[2023-06-13] MEDS: PRENATAL VITAMIN TABLET PO SCH (08:35)
[2023-06-13] MEDS: AMOX/CLAV 875 MG/125 MG TABLET PO SCH ×2 (08:35→21:13)
[2023-06-13] MEDS: NICOTINE 21 MG PATCH TOP SCH (08:35)
[2023-06-13] MEDS: PHENobarbitaL 32.4 MG TABLET PO SCH (08:35)
[2023-06-13] MEDS: METOPROLOL SUCCINATE 25 MG TABLET PO SCH ×2 (08:35→21:13)
[2023-06-13] MEDS: FAMOTIDINE 20 MG TABLET PO SCH ×2 (08:35→21:13)
[2023-06-13] MEDS: SODIUM CHLORIDE FLUSH 0.9% 10 ML SYRINGE IVP SCH ×3 (08:36→23:00)
[2023-06-13] MEDS ORDERED: ALBUTEROL NEB 2.5 MG/3 ML INH SCH (09:08)
[2023-06-13] MEDS ORDERED: IPRATROPIUM/ALBUTEROL 3 ML NEB INH PRN (10:36)
--- NOTE | 2023-06-13 11:30 | PHARMACY PROGRESS NOTE ---
- Best Possible Medication History Admit Date and Time: 06/12/23 1136 Processed by: Pharmacy Medication History completed: Yes Patient Interview: Completed Mr. Nelson is very knowledgeable in what he is prescribed but states that he forgets to take his medication more often then not. As the person ultimately responsible for medication therapy, providers are able to order a medication from an existing home medication list in [facility] via the "Reconcile Routine" prior to Confirmation of that medication by sales support associate. Such practice is discouraged except when the physician, in their clinical judgment, deems that a medical need exists for a medication without regard to previous use.
--- NOTE | 2023-06-13 12:18 | PROVIDER PROGRESS NOTE ---
Subjective - Subjective Pt reports feeling: No change (He admits he is still having tremors and sweats. He is having severe nicotine urges he says) Objective - Vital Signs/Intake & Output Reviewed Vital Signs: Yes Vital Signs: Vital Signs Temp Pulse Resp BP Pulse Ox O2 Flow Rate 06/13/23 11:00 81 15 131/114 H 93 2 06/13/23 10:00 36.5 C 80 18 125/94 H 91 L 2 06/13/23 09:00 83 13 133/99 H 91 L 2 Intake & Output: Intake & Output 06/10/23 06/11/23 06/12/23 06/13/23 23:59 23:59 23:59 23:59 Intake Total 651 480 9395 1080 Output Total 200 1350 1400 Balance 285 530 21 -320 - Objective General Appearance: positive: No acute distress, Alert Eyes Bilateral: positive: Normal inspection, EOMI ENT: positive: ENT inspection nml, Other (Disheveled) Respiratory: positive: No respiratory distress Cardiovascular: positive: Regular rate & rhythm Rectal: positive: Non-tender Skin: positive: Diaphoresis Extremities: positive: Non-tender, No pedal edema Neurologic/Psychiatric: positive: Oriented x3, Motor nml, Other (No tremor, no nystagmus) - Lab Results Fish Bones: 06/13/23 04:14 06/13/23 04:14 Other Labs: Lab Results x24hrs 06/13/23 06/13/23 06/13/23 Range/Units 04:14 04:14 04:14 WBC 7.2 (4.8-10.8) x10^3/uL RBC 4.71 (4.70-6.10) 10^6/uL Hgb 16.3 (14.0-18.0) g/dL Hct 46.5 (42.0-52.0) % MCV 98.7 H (80.0-94.0) fL MCH 34.6 H (27.0-31.0) pg MCHC 35.1 (32.0-36.0) g/dL RDW 14.4 (12.0-15.0) % Plt Count 193 (130-450) 10^3/uL MPV 10.2 (7.4-11.4) fL Neut # (Auto) 5.0 (1.5-6.6) 10^3/uL Lymph # (Auto) 1.4 L (1.5-3.5) 10^3/uL [place] # (Auto) 0.6 (0.0-1.0) 10^3/uL Eos # (Auto) 0.1 (0.0-0.7) 10^3/uL Baso # (Auto) 0.1 (0.0-0.1) 10^3/uL Absolute Nucleated RBC 0.00 x10^3/uL Nucleated RBC % 0.0 /100WBC VBG pH 7.422 H (7.31-7.41) Ionized Calcium 1.13 L (1.15-1.33) mmol/L Sodium 134 L (135-145) mmol/L Potassium 3.7 (3.5-4.5) mmol/L Chloride 102 (101-111) mmol/L Carbon Dioxide 26 (21-32) mmol/L Anion Gap 6.0 (6-13) BUN 10 (6-20) mg/dL Creatinine 0.7 (0.6-1.3) mg/dL Estimated GFR (MDRD) 116 (>89) Glucose 102 (74-104) mg/dL Calcium 8.9 (8.5-10.3) mg/dL Phosphorus 2.9 (2.5-5.0) mg/dL Magnesium 1.9 (1.7-2.3) mg/dL Total Bilirubin 0.5 (0.2-1.0) mg/dL Direct Bilirubin < 0.10 (0.03-0.18) mg/dL AST 18 (10-42) IU/L ALT 15 (10-60) IU/L Alkaline Phosphatase 69 (42-121) IU/L Total Protein 6.4 (6.4-8.9) g/dL Albumin 3.8 (3.2-5.5) g/dL Globulin 2.6 (2.1-4.2) g/dL Nasal Screen MRSA (PCR) (NEGATIVE) 06/12/23 Range/Units 11:40 WBC (4.8-10.8) x10^3/uL RBC (4.70-6.10) 10^6/uL Hgb (14.0-18.0) g/dL Hct (42.0-52.0) % MCV (80.0-94.0) fL MCH (27.0-31.0) pg MCHC (32.0-36.0) g/dL RDW (12.0-15.0) % Plt Count (130-450) 10^3/uL MPV (7.4-11.4) fL Neut # (Auto) (1.5-6.6) 10^3/uL Lymph # (Auto) (1.5-3.5) 10^3/uL [place] # (Auto) (0.0-1.0) 10^3/uL Eos # (Auto) (0.0-0.7) 10^3/uL Baso # (Auto) (0.0-0.1) 10^3/uL Absolute Nucleated RBC x10^3/uL Nucleated RBC % /100WBC VBG pH (7.31-7.41) Ionized Calcium (1.15-1.33) mmol/L Sodium (135-145) mmol/L Potassium (3.5-4.5) mmol/L Chloride (101-111) mmol/L Carbon Dioxide (21-32) mmol/L Anion Gap (6-13) BUN (6-20) mg/dL Creatinine (0.6-1.3) mg/dL Estimated GFR (MDRD) (>89) Glucose (74-104) mg/dL Calcium (8.5-10.3) mg/dL Phosphorus (2.5-5.0) mg/dL Magnesium (1.7-2.3) mg/dL Total Bilirubin (0.2-1.0) mg/dL Direct Bilirubin (0.03-0.18) mg/dL AST (10-42) IU/L ALT (10-60) IU/L Alkaline Phosphatase (42-121) IU/L Total Protein (6.4-8.9) g/dL Albumin (3.2-5.5) g/dL Globulin (2.1-4.2) g/dL Nasal Screen MRSA (PCR) NEGATIVE (NEGATIVE) Assessment/Plan - Problem List (1) Alcohol withdrawal Impression: The patient was admitted to the ICU since he was scoring as high as 48 on his CIWA score card. I also started him on Librium 25 every 6 hours. This morning he is somnolent, did not awaken for breakfast Plan: Cont [facility] ICU-protocol Ativan dosing I will decrease Librium scheduled from 25 mg QID to 10 mg QID, as he is excessively somnolent on 25 mg QID Oral phenobarbital was just an ER order. I will not continue the phenobarb Cont vitamin and thiamine daily After he is medically cleared, social work consult will be placed (2) PTSD (post-traumatic stress disorder) Conclusion/Plan: This is an established diagnosis according to the chart. He describes that his response is with anger management problems Plan: As per the psychiatry recommendations we will first have him go through alcohol withdrawal and then have our social service assistant assist in getting him transferred to an inpatient psychiatric facility (3) CAP (community acquired pneumonia) Conclusion/Plan: His presentation to the ED started with a coughing spasm that would not relent for a very long time. His chest x-ray has a suspicion of infiltrate He has been started on oral Augmentin Plan: Continue with oral Augmentin (4) Hypertension Conclusion/Plan: Plan: I will order the use of his usual blood pressure meds while here (5) Nicotine use Conclusion/Plan: He is describing extreme nicotine urges. He confirms that he smokes 3-1/2 packs a day and is a true "chain smoker" Plan: I asked our pharmacist [place] and will increase his nicotine patch to a 21 mg PLUS a 14 mg patch topically daily Continue with his usual COPD meds for maintenance, he is not in a COPD exacerbation at this time
[2023-06-13] MEDS: IPRATROPIUM/ALBUTEROL 3 ML NEB INH SCH ×2 (13:29→20:00)
[2023-06-13] MEDS: NICOTINE 14 MG PATCH TOP SCH (16:01)
[2023-06-13] MEDS: chlordiazePOXIDE 5 MG CAPSULE PO SCH (23:00)
[2023-06-13] MEDS: ACETAMINOPHEN 325 MG TABLET PO PRN (23:26)
[2023-06-14] MEDS: chlordiazePOXIDE 5 MG CAPSULE PO SCH ×2 (05:26→20:57)
--- NOTE | 2023-06-14 07:45 | PROVIDER PROGRESS NOTE ---
Assessment/Plan - Problem List (1) Alcohol withdrawal Assessment/Plan: The patient was admitted to the ICU since he was scoring as high as 48 on his CIWA score card. I also started him on Librium 25 every 6 hours, then decreased that to 10 mg q6h on Day 2. He has been scoring under 12 on CIWA protocol so he was moved out of the ICU to [facility] yesterday afternoon, and I stopped the Ativan High ICU-dose and put him on high-dose Ativan, per CIWA report This morning he is less anxious, less tremulous, but describes feeling claustrophobic and requests to go outside Plan: I will further decrease Librium scheduled from 10 mg QID to 10 mg BID Cont vitamin and thiamine daily OOB to chair more ordered I will not allow him going outdoors, even escorted, due to flight risk After he is medically cleared, social work consult to see him. (2) Hx of central retinal artery occlusion Assessment/Plan: He was wearing an eye patch in the ER, it was documented in notes. He has not worn the eye patch here until today, his third day here, and I asked about it. 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 Plan: I will add this to his list of diagnoses in his EMR (3) PTSD (post-traumatic stress disorder) Conclusion/Plan: This is an established diagnosis according to the chart. He describes that his response is with anger management problems Plan: As per the psychiatry recommendations we will first have him go through alcohol withdrawal and then have our manager social media assist in getting him transferred to an inpatient psychiatric facility. I discussed this with the patient today. He is agreeable. (4) CAP (community acquired pneumonia) Conclusion/Plan: His presentation to the ED started with a coughing spasm that would not relent for a very long time. His chest x-ray has a suspicion of infiltrate He has been started on oral Augmentin Plan: Complete a 5-day course of oral Augmentin (5) Hypertension Conclusion/Plan: Blood pressures are running 170/100. Patient said he knew that he has hypertension and had said he is on medication for HTN. But the reconciled med list shows no blood pressure meds whatsoever. Plan: I will start him on Norvasc 5 mg daily (6) Nicotine use Conclusion/Plan: He was describing extreme nicotine urges. He confirmed that he smokes 3-1/2 packs a day, and is a true "chain smoker" I asked our pharmacist [place] and increased his nicotine patch to a 21 mg plus a 14 mg patch topically daily, started yesterday afternoon Plan: Continue with his usual COPD meds for maintenance, he is not in a COPD ex acerbation at this time Continue the nicotine patch. The dose will need to be titrated down after s everal days. - Current Meds Current Meds: Current Medications Generic Name Dose Route Start Last Admin Trade Name Freq PRN Reason Stop Dose Admin Acetaminophen 650 mg 06/13/23 23:17 06/13/23 23:26 Acetaminophen 325 Mg Tablet PO 650 mg Q4HR PRN Administration Pain or Fever > 38C (100.4F) Albuterol/Ipratropium 3 ml 06/13/23 13:00 06/13/23 20:00 Ipratropium/Albuterol 3 Ml Neb INH 3 ml RTTID JORGE Administration Amoxicillin/Clavulanate Potassium 1 tab 06/12/23 21:00 06/13/23 21:13 Amox/Clav 875 Mg/125 Mg Tablet PO 1 tab BID JORGE Administration Famotidine 20 mg 06/12/23 21:00 06/13/23 21:13 Famotidine 20 Mg Tablet PO 20 mg BID JORGE Administration Lorazepam 2 mg 06/13/23 17:40 06/13/23 23:49 Lorazepam 2 Mg/Ml Vial IVP 2 mg Q30M PRN Administration CIWA >8 Protocol Metoprolol Succinate 25 mg 06/12/23 13:16 06/13/23 21:13 Metoprolol Succinate 25 Mg Tablet PO 25 mg BID JORGE Administration Nicotine 1 patch 06/12/23 13:19 06/13/23 08:35 Nicotine 21 Mg Patch TOP 1 patch DAILY JORGE Administration Nicotine 1 patch 06/13/23 15:50 06/13/23 16:01 Nicotine 14 Mg Patch TOP 1 patch DAILY JORGE Administration Multivit/Folic Acid/Iron 1 tab 06/12/23 12:00 06/13/23 08:35 Vitamin Tablet PO 1 tab DAILY JORGE Administration Sodium Chloride 10 ml 06/12/23 17:00 06/13/23 23:00 Sodium Chloride Flush 0.9% 10 Ml Syringe IVP 10 ml 0100,0900,1700 JORGE Administration Thiamine HCl 100 mg 06/13/23 11:00 06/13/23 11:34 Thiamine 100 Mg Tablet PO 100 mg DAILY JORGE Administration - Lab Result Fish Bone Diagrams: 06/13/23 04:14 06/13/23 04:14 - Additional Planning My Orders: My Active Orders 06/13/23 10:36 Nebulizer/MDI Tx. [RC] QID Resp Teach Nebulizer/MDI [RC] .ONCE Ipratropium/Albuterol [Duoneb] 3 ml INH Q4HR PRN 06/13/23 11:00 Thiamine [Vitamin B-1] 100 mg PO DAILY 06/13/23 13:00 Ipratropium/Albuterol [Duoneb] 3 ml INH RTTID 06/13/23 15:50 Nicotine 14 mg Patch [Nicoderm] 1 patch TOP DAILY 06/13/23 17:40 LORazepam INJ [Ativan Inj (Vial)] 2 mg IVP Q30M PRN 06/13/23 17:41 Telemetry-Discontinue [RC] .ONCE 06/14/23 09:00 Sertraline [Zoloft] 150 mg PO DAILY amLODIPine [Norvasc] 5 mg PO DAILY chlordiazePOXIDE [Librium] 10 mg PO BID Subjective - Subjective Patient Reports: Feeling Better (His says his anxiety is up-and-down but slightly better. He mostly craves a cigarette and would like to go outside because of his claustrophobia.) Objective Vital Signs: Vital Signs - 24 hr 06/13/23 06/13/23 06/13/23 08:00 09:00 10:00 Temperature 36.5 C Heart Rate Heart Rate [ 75 83 80 Monitoring electrodes] Respiratory 16 13 18 Rate Blood Pressure 127/93 H 133/99 H 125/94 H [Right Brachial artery] O2 Saturation 94 91 L 91 L If not protocol 2 2 2 : Oxygen Flow, liters/minute 06/13/23 06/13/23 06/13/23 11:00 12:00 13:00 Temperature Heart Rate Heart Rate [ 81 86 87 Monitoring electrodes] Respiratory 15 14 17 Rate Blood Pressure 131/114 H 136/102 H 115/74 [Right Brachial artery] O2 Saturation 93 93 94 If not protocol 2 2 2 : Oxygen Flow, liters/minute 08/06/13/23 06/13/23 13:30 14:00 15:00 Temperature Heart Rate 92 Heart Rate [ 93 93 Monitoring electrodes] Respiratory 20 16 19 Rate Blood Pressure 132/92 H 134/93 H [Right Brachial artery] O2 Saturation 93 92 If not protocol 2 2 2 : Oxygen Flow, liters/minute 06/13/23 06/13/23 06/13/23 16:00 17:00 18:16 Temperature 36.6 C Heart Rate Heart Rate [ 91 89 Monitoring electrodes] Respiratory 18 17 Rate Blood Pressure 131/98 H 136/108 H [Right Brachial artery] O2 Saturation 91 L 96 94 If not protocol 2 1.5 : Oxygen Flow, liters/minute 06/13/23 06/13/23 06/13/23 20:00 21:00 23:04 Temperature 36.8 C 36.4 C L Heart Rate 96 Heart Rate [ 94 86 Monitoring electrodes] Respiratory 16 16 18 Rate Blood Pressure 144/112 H 154/106 H [Right Brachial artery] O2 Saturation 95 94 If not protocol : Oxygen Flow, liters/minute 06/14/23 05:30 Temperature 36.6 C Heart Rate Heart Rate [ 79 Monitoring electrodes] Respiratory 16 Rate Blood Pressure 134/100 H [Right Brachial artery] O2 Saturation 96 If not protocol : Oxygen Flow, liters/minute Oxygen O2 Source Room air Oxygen Flow Rate 2 I&O (Last 24 Hrs): Intake and Output Totals x24h 06/12/23 06/13/23 06/14/23 23:59 23:59 23:59 Intake Total 1371 3700 500 Output Total 1350 2425 750 Balance 21 1275 -250 General: Alert, Oriented x3 HEENT: Mucous membr. moist/pink, Other (Disheveled appearing, has patch over his right eye) - Results Results: Laboratory Results WBC 7.2 x10^3/uL (4.8-10.8) 06/13/23 04:14 RBC 4.71 10^6/uL (4.70-6.10) 06/13/23 04:14 Hgb 16.3 g/dL (14.0-18.0) 06/13/23 04:14 Hct 46.5 % (42.0-52.0) 06/13/23 04:14 MCV 98.7 fL (80.0-94.0) H 06/13/23 04:14 MCH 34.6 pg (27.0-31.0) H 06/13/23 04:14 MCHC 35.1 g/dL (32.0-36.0) 06/13/23 04:14 RDW 14.4 % (12.0-15.0) 06/13/23 04:14 Plt Count 193 10^3/uL (130-450) 06/13/23 04:14 MPV 10.2 fL (7.4-11.4) 06/13/23 04:14 Neut # (Auto) 5.0 10^3/uL (1.5-6.6) 06/13/23 04:14 Lymph # (Auto) 1.4 10^3/uL (1.5-3.5) L 06/13/23 04:14 [place] # (Auto) 0.6 10^3/uL (0.0-1.0) 06/13/23 04:14 Eos # (Auto) 0.1 10^3/uL (0.0-0.7) 06/13/23 04:14 Baso # (Auto) 0.1 10^3/uL (0.0-0.1) 06/13/23 04:14 Absolute Nucleated RBC 0.00 x10^3/uL 06/13/23 04:14 Nucleated RBC % 0.0 /100WBC 06/13/23 04:14 PT 11.0 secs (9.9-12.6) 06/12/23 11:22 INR 1.0 (0.8-1.2) 06/12/23 11:22 VBG pH 7.422 (7.31-7.41) H 06/13/23 04:14 Ionized Calcium 1.13 mmol/L (1.15-1.33) L 06/13/23 04:14 Sodium 134 mmol/L (135-145) L 06/13/23 04:14 Potassium 3.7 mmol/L (3.5-4.5) 06/13/23 04:14 Chloride 102 mmol/L (101-111) 06/13/23 04:14 Carbon Dioxide 26 mmol/L (21-32) 06/13/23 04:14 Anion Gap 6.0 (6-13) 06/13/23 04:14 BUN 10 mg/dL (6-20) 06/13/23 04:14 Creatinine 0.7 mg/dL (0.6-1.3) 06/13/23 04:14 Estimated GFR (MDRD) 116 (>89) 06/13/23 04:14 Glucose 102 mg/dL (74-104) 06/13/23 04:14 Calcium 8.9 mg/dL (8.5-10.3) 06/13/23 04:14 Phosphorus 2.9 mg/dL (2.5-5.0) 06/13/23 04:14 Magnesium 1.9 mg/dL (1.7-2.3) 06/13/23 04:14 Total Bilirubin 0.5 mg/dL (0.2-1.0) 06/13/23 04:14 Direct Bilirubin < 0.10 mg/dL (0.03-0.18) 06/13/23 04:14 AST 18 IU/L (10-42) 06/13/23 04:14 ALT 15 IU/L (10-60) 06/13/23 04:14 Alkaline Phosphatase 69 IU/L (42-121) 06/13/23 04:14 Total Creatine Kinase 92 IU/L (30-223) 06/10/23 19:48 Total Protein 6.4 g/dL (6.4-8.9) 06/13/23 04:14 Albumin 3.8 g/dL (3.2-5.5) 06/13/23 04:14 Globulin 2.6 g/dL (2.1-4.2) 06/13/23 04:14 Albumin/Globulin Ratio 1.5 (1.0-2.2) 06/12/23 11:22 Lipase 51 U/L (11-82) 06/11/23 17:54 TSH 3.08 uIU/mL (0.34-5.60) 06/10/23 19:48 Urine Color YELLOW 06/10/23 21:20 Urine Clarity CLEAR (CLEAR) 06/10/23 21:20 Urine pH 5.5 PH (5.0-7.5) 06/10/23 21:20 Ur Specific [place] 1.020 (1.002-1.030) 06/10/23 21:20 Urine Protein NEGATIVE mg/dL (NEGATIVE) 06/10/23 21:20 Urine Glucose (UA) NEGATIVE mg/dL (NEGATIVE) 06/10/23 21:20 Urine Ketones NEGATIVE mg/dL (NEGATIVE) 06/10/23 21:20 Urine Occult Blood NEGATIVE (NEGATIVE) 06/10/23 21:20 Urine Nitrite NEGATIVE (NEGATIVE) 06/10/23 21:20 Urine Bilirubin NEGATIVE (NEGATIVE) 06/10/23 21:20 Urine Urobilinogen 0.2 (NORMAL) E.U./dL (NORMAL) 06/10/23 21:20 Ur Leukocyte Esterase NEGATIVE (NEGATIVE) 06/10/23 21:20 Ur Microscopic Review NOT INDICATED 06/10/23 21:20 Urine Culture Comments NOT INDICATED 06/10/23 21:20 Nasal Adenovirus (PCR) NOT DETECTED 06/10/23 19:50 Nasal B. parapertussis DNA (PCR) NOT DETECTED 06/10/23 19:50 Nasal Coronavir 229E PCR NOT DETECTED 06/10/23 19:50 Nasal Coronavir HKU1 PCR NOT DETECTED 06/10/23 19:50 Nasal Coronavir NL63 PCR NOT DETECTED 06/10/23 19:50 Nasal Coronavir OC43 PCR NOT DETECTED 06/10/23 19:50 Nasal Enterovir/Rhinovir PCR NOT DETECTED 06/10/23 19:50 Nasal Influenza B PCR NOT DETECTED 06/10/23 19:50 Nasal Influenza A PCR NOT DETECTED 06/10/23 19:50 Nasal Parainfluen 1 PCR NOT DETECTED 06/10/23 19:50 Nasal Parainfluen 2 PCR NOT DETECTED 06/10/23 19:50 Nasal Parainfluen 3 PCR NOT DETECTED 06/10/23 19:50 Nasal Parainfluen 4 PCR NOT DETECTED 06/10/23 19:50 Nasal RSV (PCR) NOT DETECTED 06/10/23 19:50 Nasal Screen MRSA (PCR) NEGATIVE (NEGATIVE) 06/12/23 11:40 Nasal B.pertussis DNA PCR NOT DETECTED 06/10/23 19:50 Nasal C.pneumoniae (PCR) NOT DETECTED 06/10/23 19:50 Eric Human Metapneumo PCR NOT DETECTED 06/10/23 19:50 Nasal M.pneumoniae (PCR) NOT DETECTED 06/10/23 19:50 Nasal SARS-CoV-2 (PCR) NOT DETECTED 06/10/23 19:50 Salicylates < 1.5 mg/dL 06/10/23 19:48 Urine Opiates Screen NEGATIVE (NEGATIVE) 06/10/23 21:20 Ur Oxycodone Screen NEGATIVE (NEGATIVE) 06/10/23 21:20 Urine Methadone Screen NEGATIVE (NEGATIVE) 06/10/23 21:20 Ur Propoxyphene Screen NEGATIVE (NEGATIVE) 06/10/23 21:20 Acetaminophen < 0 ug/mL (10-30) L 06/10/23 19:48 Ur Barbiturates Screen NEGATIVE (NEGATIVE) 06/10/23 21:20 Ur Tricyclics Screen NEGATIVE (NEGATIVE) 06/10/23 21:20 Ur Phencyclidine Scrn NEGATIVE (NEGATIVE) 06/10/23 21:20 Ur Amphetamine Screen NEGATIVE (NEGATIVE) 06/10/23 21:20 U Methamphetamines Scrn NEGATIVE (NEGATIVE) 06/10/23 21:20 U Benzodiazepines Scrn NEGATIVE (NEGATIVE) 06/10/23 21:20 Urine Cocaine Screen NEGATIVE (NEGATIVE) 06/10/23 21:20 U Cannabinoids Screen NEGATIVE (NEGATIVE) 06/10/23 21:20 Ethyl Alcohol < 10.0 mg/dL 06/11/23 17:54
[2023-06-14] MEDS: IPRATROPIUM/ALBUTEROL 3 ML NEB INH SCH ×3 (07:49→20:08)
[2023-06-14] MEDS: AMOX/CLAV 875 MG/125 MG TABLET PO SCH ×2 (08:43→20:56)
[2023-06-14] MEDS: METOPROLOL SUCCINATE 25 MG TABLET PO SCH ×2 (08:43→20:57)
[2023-06-14] MEDS: amLODIPine 5 MG TABLET PO SCH (08:43)
[2023-06-14] MEDS: FAMOTIDINE 20 MG TABLET PO SCH ×2 (08:43→21:00)
[2023-06-14] MEDS: THIAMINE 100 MG TABLET PO SCH (08:43)
[2023-06-14] MEDS: NICOTINE 14 MG PATCH TOP SCH (08:44)
[2023-06-14] MEDS: PRENATAL VITAMIN TABLET PO SCH (08:44)
[2023-06-14] MEDS: SERTRALINE 50 MG TABLET PO SCH (08:44)
[2023-06-14] MEDS: SODIUM CHLORIDE FLUSH 0.9% 10 ML SYRINGE IVP SCH ×2 (08:44→19:07)
[2023-06-14] MEDS: NICOTINE 21 MG PATCH TOP SCH (08:44)
[2023-06-14] MEDS: LORazepam 2 MG/ML VIAL IVP PRN (12:22)
[2023-06-14] MEDS: ACETAMINOPHEN 325 MG TABLET PO PRN (14:23)
[2023-06-15] MEDS: SODIUM CHLORIDE FLUSH 0.9% 10 ML SYRINGE IVP SCH ×3 (00:08→15:57)
[2023-06-15] MEDS: IPRATROPIUM/ALBUTEROL 3 ML NEB INH SCH ×3 (07:28→18:23)
[2023-06-15] MEDS: chlordiazePOXIDE 5 MG CAPSULE PO SCH (09:06)
[2023-06-15] MEDS: FAMOTIDINE 20 MG TABLET PO SCH ×2 (09:06→20:53)
[2023-06-15] MEDS: amLODIPine 5 MG TABLET PO SCH (09:06)
[2023-06-15] MEDS: PRENATAL VITAMIN TABLET PO SCH (09:06)
[2023-06-15] MEDS: NICOTINE 21 MG PATCH TOP SCH (09:07)
[2023-06-15] MEDS: THIAMINE 100 MG TABLET PO SCH (09:07)
[2023-06-15] MEDS: METOPROLOL SUCCINATE 25 MG TABLET PO SCH ×2 (09:07→20:54)
[2023-06-15] MEDS: SERTRALINE 50 MG TABLET PO SCH (09:07)
[2023-06-15] MEDS: NICOTINE 14 MG PATCH TOP SCH (09:08)
[2023-06-15] MEDS: AMOX/CLAV 875 MG/125 MG TABLET PO SCH ×2 (09:11→20:53)
[2023-06-15] MEDS: ACETAMINOPHEN 325 MG TABLET PO PRN (14:57)
--- NOTE | 2023-06-15 19:56 | PROVIDER PROGRESS NOTE ---
Assessment/Plan - Problem List (1) Alcohol withdrawal Assessment/Plan: The patient was admitted to the ICU since he was scoring as high as 48 on his CIWA score card. I also started him on Librium 25 every 6 hours, then decreased that to 10 mg q6h on Day 2. He has been scoring under 12 on CIWA protocol so he was moved out of the ICU to [facility] yesterday afternoon, and I stopped the Ativan High ICU-dose and put him on high-dose Ativan, per CIWA report This morning he is less anxious, less tremulous, but describes feeling claustrophobic and requests to go outside Plan: I will order his last Librium dose this am then stop Cont vitamin and thiamine daily He is medically cleared, social work consult to see him for getting him to an inpatient psych facility. (2) Hx of central retinal artery occlusion Assessment/Plan: He was wearing an eye patch in the ER, it was documented in notes. He has not worn the eye patch here until today, his third day here, and I asked about it. He said there is a history of retinal occlusion in the right eye and he is c ompletely blind in that eye. Plan: I added this to his list of diagnoses in his EMR (3) PTSD (post-traumatic stress disorder) Conclusion/Plan: This is an established diagnosis according to the chart. He describes that his response is with anger management problems Plan: As per the psychiatry recommendations we treated him first through alcohol withdrawal and he is medically cleared today to have our manager social responsibility getting him transferred to an inpatient psychiatric facility. I discussed this with the patient today. He is agreeable. (4) CAP (community acquired pneumonia) Conclusion/Plan: His presentation to the ED started with a coughing spasm that would not relent for a very long time. His chest x-ray has a suspicion of infiltrate He has been started on oral Augmentin Plan: He is completing a 5-day course of oral Augmentin (5) Hypertension Conclusion/Plan: Blood pressures are running 170/100. Patient said he knew that he has hypertension and had said he is on medication for HTN. But the reconciled med list shows no blood pressure meds whatsoever. Plan: Continue his home dose of metoprolol I started him on Norvasc 5 mg daily (6) Nicotine use Conclusion/Plan: He was describing extreme nicotine urges. He confirmed that he smokes 3-1/2 packs a day, and is a true "chain smoker" Cont his nicotine patch 21 mg plus a 14 mg patch topically daily Plan: Continue with his usual COPD meds for maintenance, he is not in a COPD exacerbation at this time Continue the nicotine patch. The dose will need to be titrated down after several days. We learned that his brother probably brought him a vape cigarette. it was removed. Watch for this type of activity, not alowed. - Current Meds Current Meds: Current Medications Generic Name Dose Route Start Last Admin Trade Name Freq PRN Reason Stop Dose Admin Acetaminophen 650 mg 06/13/23 23:17 06/15/23 14:57 Acetaminophen 325 Mg Tablet PO 650 mg Q4HR PRN Administration Pain or Fever > 38C (100.4F) Albuterol/Ipratropium 3 ml 06/13/23 13:00 06/15/23 18:23 Ipratropium/Albuterol 3 Ml Neb INH 3 ml RTTID JORGE Administration Amlodipine Besylate 5 mg 06/14/23 09:00 06/15/23 09:06 Amlodipine 5 Mg Tablet PO 5 mg DAILY JORGE Administration Amoxicillin/Clavulanate Potassium 1 tab 06/12/23 21:00 06/15/23 09:11 Amox/Clav 875 Mg/125 Mg Tablet PO 06/15/23 23:55 1 tab BID JORGE Administration Famotidine 20 mg 06/12/23 21:00 06/15/23 09:06 Famotidine 20 Mg Tablet PO 20 mg BID JORGE Administration Lorazepam 2 mg 06/13/23 17:40 06/14/23 12:22 Lorazepam 2 Mg/Ml Vial IVP 2 mg Q30M PRN Administration CIWA >8 Protocol Metoprolol Succinate 25 mg 06/12/23 13:16 06/15/23 09:07 Metoprolol Succinate 25 Mg Tablet PO 25 mg BID JORGE Administration Nicotine 1 patch 06/12/23 13:19 06/15/23 09:07 Nicotine 21 Mg Patch TOP 1 patch DAILY JORGE Administration Nicotine 1 patch 06/13/23 15:50 06/15/23 09:08 Nicotine 14 Mg Patch TOP 1 patch DAILY JORGE Administration Multivit/Folic Acid/Iron 1 tab 06/12/23 12:00 06/15/23 09:06 Vitamin Tablet PO 1 tab DAILY JORGE Administration Sertraline HCl 150 mg 06/14/23 09:00 06/15/23 09:07 Sertraline 50 Mg Tablet PO 150 mg DAILY JORGE Administration Sodium Chloride 10 ml 06/12/23 17:00 06/15/23 15:57 Sodium Chloride Flush 0.9% 10 Ml Syringe IVP 10 ml 0100,0900,1700 JORGE Administration Sodium Chloride 10 ml 06/12/23 11:09 06/14/23 21:00 Sodium Chloride Flush 0.9% 10 Ml Syringe IVP 10 ml PRN PRN Administration NEEDED PER PROVIDER ORDERS Thiamine HCl 100 mg 06/13/23 11:00 06/15/23 09:07 Thiamine 100 Mg Tablet PO 100 mg DAILY JORGE Administration - Lab Result Fish Bone Diagrams: 06/13/23 04:14 06/13/23 04:14 - Additional Planning My Orders: My Active Orders 06/15/23 Social Work Consult [CONS] Routine Subjective - Subjective Patient Reports: Feeling Better (Much less anxious, eager to go to inpatient psych. Able to walk the halls using a walker) Objective Vital Signs: Vital Signs - 24 hr 06/14/23 06/14/23 06/15/23 20:00 20:09 07:25 Temperature 36.8 C 36.9 C Heart Rate 89 Heart Rate [ 89 84 Monitoring electrodes] Respiratory 18 18 14 Rate Blood Pressure 135/105 H 140/97 H [Right Brachial artery] O2 Saturation 94 94 06/15/23 06/15/23 06/15/23 07:29 13:10 13:14 Temperature 36.9 C Heart Rate 85 94 Heart Rate [ 82 Monitoring electrodes] Respiratory 16 16 18 Rate Blood Pressure 105/87 H [Right Brachial artery] O2 Saturation 98 06/15/23 16:10 Temperature 36.9 C Heart Rate Heart Rate [ 84 Monitoring electrodes] Respiratory 20 Rate Blood Pressure 140/90 H [Right Brachial artery] O2 Saturation 97 Oxygen O2 Source Room air Oxygen Flow Rate 2 I&O (Last 24 Hrs): Intake and Output Totals x24h 06/13/23 06/14/23 06/15/23 23:59 23:59 23:59 Intake Total 3700 2205 610 Output Total 2425 2105 Balance 1275 100 610 General: Alert, Oriented x3 HEENT: Mucous membr. moist/pink, Other (Disheveled with long dirty hair and long dirty rm) Neck: Supple Neuro: Alert, Non Focal Cardiovascular: Regular rate Respiratory: No respiratory distress Abdomen: Other (No distension) Extremities: No clubbing, No edema - Results Results: Laboratory Results WBC 7.2 x10^3/uL (4.8-10.8) 06/13/23 04:14 RBC 4.71 10^6/uL (4.70-6.10) 06/13/23 04:14 Hgb 16.3 g/dL (14.0-18.0) 06/13/23 04:14 Hct 46.5 % (42.0-52.0) 06/13/23 04:14 MCV 98.7 fL (80.0-94.0) H 06/13/23 04:14 MCH 34.6 pg (27.0-31.0) H 06/13/23 04:14 MCHC 35.1 g/dL (32.0-36.0) 06/13/23 04:14 RDW 14.4 % (12.0-15.0) 06/13/23 04:14 Plt Count 193 10^3/uL (130-450) 06/13/23 04:14 MPV 10.2 fL (7.4-11.4) 06/13/23 04:14 Neut # (Auto) 5.0 10^3/uL (1.5-6.6) 06/13/23 04:14 Lymph # (Auto) 1.4 10^3/uL (1.5-3.5) L 06/13/23 04:14 [place] # (Auto) 0.6 10^3/uL (0.0-1.0) 06/13/23 04:14 Eos # (Auto) 0.1 10^3/uL (0.0-0.7) 06/13/23 04:14 Baso # (Auto) 0.1 10^3/uL (0.0-0.1) 06/13/23 04:14 Absolute Nucleated RBC 0.00 x10^3/uL 06/13/23 04:14 Nucleated RBC % 0.0 /100WBC 06/13/23 04:14 PT 11.0 secs (9.9-12.6) 06/12/23 11:22 INR 1.0 (0.8-1.2) 06/12/23 11:22 VBG pH 7.422 (7.31-7.41) H 06/13/23 04:14 Ionized Calcium 1.13 mmol/L (1.15-1.33) L 06/13/23 04:14 Sodium 134 mmol/L (135-145) L 06/13/23 04:14 Potassium 3.7 mmol/L (3.5-4.5) 06/13/23 04:14 Chloride 102 mmol/L (101-111) 06/13/23 04:14 Carbon Dioxide 26 mmol/L (21-32) 06/13/23 04:14 Anion Gap 6.0 (6-13) 06/13/23 04:14 BUN 10 mg/dL (6-20) 06/13/23 04:14 Creatinine 0.7 mg/dL (0.6-1.3) 06/13/23 04:14 Estimated GFR (MDRD) 116 (>89) 06/13/23 04:14 Glucose 102 mg/dL (74-104) 06/13/23 04:14 Calcium 8.9 mg/dL (8.5-10.3) 06/13/23 04:14 Phosphorus 2.9 mg/dL (2.5-5.0) 06/13/23 04:14 Magnesium 1.9 mg/dL (1.7-2.3) 06/13/23 04:14 Total Bilirubin 0.5 mg/dL (0.2-1.0) 06/13/23 04:14 Direct Bilirubin < 0.10 mg/dL (0.03-0.18) 06/13/23 04:14 AST 18 IU/L (10-42) 06/13/23 04:14 ALT 15 IU/L (10-60) 06/13/23 04:14 Alkaline Phosphatase 69 IU/L (42-121) 06/13/23 04:14 Total Creatine Kinase 92 IU/L (30-223) 06/10/23 19:48 Total Protein 6.4 g/dL (6.4-8.9) 06/13/23 04:14 Albumin 3.8 g/dL (3.2-5.5) 06/13/23 04:14 Globulin 2.6 g/dL (2.1-4.2) 06/13/23 04:14 Albumin/Globulin Ratio 1.5 (1.0-2.2) 06/12/23 11:22 Lipase 51 U/L (11-82) 06/11/23 17:54 TSH 3.08 uIU/mL (0.34-5.60) 06/10/23 19:48 Urine Color YELLOW 06/10/23 21:20 Urine Clarity CLEAR (CLEAR) 06/10/23 21:20 Urine pH 5.5 PH (5.0-7.5) 06/10/23 21:20 Ur Specific [place] 1.020 (1.002-1.030) 06/10/23 21:20 Urine Protein NEGATIVE mg/dL (NEGATIVE) 06/10/23 21:20 Urine Glucose (UA) NEGATIVE mg/dL (NEGATIVE) 06/10/23 21:20 Urine Ketones NEGATIVE mg/dL (NEGATIVE) 06/10/23 21:20 Urine Occult Blood NEGATIVE (NEGATIVE) 06/10/23 21:20 Urine Nitrite NEGATIVE (NEGATIVE) 06/10/23 21:20 Urine Bilirubin NEGATIVE (NEGATIVE) 06/10/23 21:20 Urine Urobilinogen 0.2 (NORMAL) E.U./dL (NORMAL) 06/10/23 21:20 Ur Leukocyte Esterase NEGATIVE (NEGATIVE) 06/10/23 21:20 Ur Microscopic Review NOT INDICATED 06/10/23 21:20 Urine Culture Comments NOT INDICATED 06/10/23 21:20 Nasal Adenovirus (PCR) NOT DETECTED 06/10/23 19:50 Nasal B. parapertussis DNA (PCR) NOT DETECTED 06/10/23 19:50 Nasal Coronavir 229E PCR NOT DETECTED 06/10/23 19:50 Nasal Coronavir HKU1 PCR NOT DETECTED 06/10/23 19:50 Nasal Coronavir NL63 PCR NOT DETECTED 06/10/23 19:50 Nasal Coronavir OC43 PCR NOT DETECTED 06/10/23 19:50 Nasal Enterovir/Rhinovir PCR NOT DETECTED 06/10/23 19:50 Nasal Influenza B PCR NOT DETECTED 06/10/23 19:50 Nasal Influenza A PCR NOT DETECTED 06/10/23 19:50 Nasal Parainfluen 1 PCR NOT DETECTED 06/10/23 19:50 Nasal Parainfluen 2 PCR NOT DETECTED 06/10/23 19:50 Nasal Parainfluen 3 PCR NOT DETECTED 06/10/23 19:50 Nasal Parainfluen 4 PCR NOT DETECTED 06/10/23 19:50 Nasal RSV (PCR) NOT DETECTED 06/10/23 19:50 Nasal Screen MRSA (PCR) NEGATIVE (NEGATIVE) 06/12/23 11:40 Nasal B.pertussis DNA PCR NOT DETECTED 06/10/23 19:50 Nasal C.pneumoniae (PCR) NOT DETECTED 06/10/23 19:50 Eric Human Metapneumo PCR NOT DETECTED 06/10/23 19:50 Nasal M.pneumoniae (PCR) NOT DETECTED 06/10/23 19:50 Nasal SARS-CoV-2 (PCR) NOT DETECTED 06/10/23 19:50 Salicylates < 1.5 mg/dL 06/10/23 19:48 Urine Opiates Screen NEGATIVE (NEGATIVE) 06/10/23 21:20 Ur Oxycodone Screen NEGATIVE (NEGATIVE) 06/10/23 21:20 Urine Methadone Screen NEGATIVE (NEGATIVE) 06/10/23 21:20 Ur Propoxyphene Screen NEGATIVE (NEGATIVE) 06/10/23 21:20 Acetaminophen < 0 ug/mL (10-30) L 06/10/23 19:48 Ur Barbiturates Screen NEGATIVE (NEGATIVE) 06/10/23 21:20 Ur Tricyclics Screen NEGATIVE (NEGATIVE) 06/10/23 21:20 Ur Phencyclidine Scrn NEGATIVE (NEGATIVE) 06/10/23 21:20 Ur Amphetamine Screen NEGATIVE (NEGATIVE) 06/10/23 21:20 U Methamphetamines Scrn NEGATIVE (NEGATIVE) 06/10/23 21:20 U Benzodiazepines Scrn NEGATIVE (NEGATIVE) 06/10/23 21:20 Urine Cocaine Screen NEGATIVE (NEGATIVE) 06/10/23 21:20 U Cannabinoids Screen NEGATIVE (NEGATIVE) 06/10/23 21:20 Ethyl Alcohol < 10.0 mg/dL 06/11/23 17:54
[2023-06-16] MEDS: SODIUM CHLORIDE FLUSH 0.9% 10 ML SYRINGE IVP SCH ×3 (01:44→15:58)
[2023-06-16] MEDS: IPRATROPIUM/ALBUTEROL 3 ML NEB INH SCH ×3 (05:48→19:03)
[2023-06-16] MEDS: FAMOTIDINE 20 MG TABLET PO SCH (08:29)
[2023-06-16] MEDS: METOPROLOL SUCCINATE 25 MG TABLET PO SCH (08:30)
[2023-06-16] MEDS: THIAMINE 100 MG TABLET PO SCH (08:30)
[2023-06-16] MEDS: amLODIPine 5 MG TABLET PO SCH (08:30)
[2023-06-16] MEDS: PRENATAL VITAMIN TABLET PO SCH (08:30)
[2023-06-16] MEDS: SERTRALINE 50 MG TABLET PO SCH (08:31)
[2023-06-16] MEDS: NICOTINE 14 MG PATCH TOP SCH (08:32)
[2023-06-16] MEDS: NICOTINE 21 MG PATCH TOP SCH (08:34)
[2023-06-16] MEDS ORDERED: polyethylene glycoL 3350 17 GM PACKET PO SCH (09:00)
[2023-06-16] MEDS ORDERED: MAGNESIUM HYDROXIDE 2,400 MG/30 ML UDC PO ONE (13:21)
[2023-06-16] MEDS: SENNA 8.6 MG TABLET PO SCH ×2 (14:03→20:28)
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
--- NOTE | 2023-06-16 14:29 | Discharge Plan ---
Discharge Plan Problem Reviewed?: Yes Disposition: 02 Transfer Acute Care Hosp Condition: Stable Instruction Topics: ED Alcohol Intoxication, ED Pneumonia Adult Additional Instructions or Follow Up instructions: Abstain from alcohol. You do have a mild pneumonia which is causing the cough and we wrote antibiotics for that. Call your doctor to arrange a follow-up appointment, make the next available appointment. In the interim, return anytime if worse or if new symptoms develop. No Smoking: If you smoke, Please STOP! Call for help.
--- NOTE | 2023-06-16 14:55 | Discharge Plan ---
Discharge Plan for SNF / [facility] - Discharge Plan And Transition Orders Problem Reviewed?: Yes Disposition: 65 Psych Hosp/Unit DC/Xfer Condition: Stable Allergies and Adverse Reactions: Allergies Allergy/AdvReac Type Severity Reaction Status Date / Time codeine Allergy Unknown Verified 06/10/23 19:55 Health Concerns: The pt presented with a cough, found to have a pneumonia, and admitted to longstanding alcohol abuse, recent binge drinking and was in alcohol withdrawal. He described anger management trouble and a Hx of PTSD. He was threatening to inflict harm. A telepsych eval was done in the ER and the Psychiatrist advised he be hospitalized for treatment of alcohol withdrawal, and then be transferred to an Inpatient Psych facility. He has completed treatment of the pneumonia. He is medically cleared after going through alcohol withdrawal, to be transferred. . Plan of Treatment: His usual home meds have been continued. Care Goals: Improvement in symptoms and stabilization are the goals. Assessment: The patient understands and is agreeable with the plan. - SNF / ASSISTED Transition Orders Admit to (Facility): [facility] Under the care of (Name): CARLITA Bourgeois Discharge Diagnosis: (1) Alcohol withdrawal Went through alcohol withdrawal. (2) Hx of central retinal artery occlusion He wears an eye patch on the right eye. (3) PTSD (post-traumatic stress disorder) As per history. (4) CAP (community acquired pneumonia) He completed a course of oral antibiotics. (5) Hypertension As per history. (6) Nicotine use He is a 3 to 4-pack a day "chain smoker". We have had him on 2 nicotine patches simultaneously daily. We also found him to be sneaking vaping in his room, pr esumably brought in to him by the brother who visited. Medication Orders: PLEASE REFER TO THE DISCHARGE MEDICATION LIST. - Diet Type: No added salt Texture: Regular Liquids: Thin May have monthly special meal: Yes Follow Up: See PCP at the [place] [facility] after discharge from [facility].
[2023-06-16 19:23] VITALS: O2SAT 94
[2023-06-16 21:03] VITALS: BP 135/72
== END 2023-06-16 20:45 | DRG 896 ==
LOC: EDUNIT# → ED 19:40 → ICU 06-12 11:36
PROVIDERS: ADMIT Internal Medicine; ATTEND Internal Medicine
DX: F10.139 Alcohol abuse with withdrawal, unspecified (principal); J18.9 Pneumonia, unspecified organism; J44.0 Chronic obstructive pulmonary disease with (acute) lower respiratory infection; H34.10 Central retinal artery occlusion, unspecified eye; F43.10 Post-traumatic stress disorder, unspecified; I10 Essential (primary) hypertension; F17.200 Nicotine dependence, unspecified, uncomplicated; E78.00 Pure hypercholesterolemia, unspecified; F41.0 Panic disorder [episodic paroxysmal anxiety]; F41.9 Anxiety disorder, unspecified; Z20.822 Contact with and (suspected) exposure to COVID-19; Z79.899 Other long term (current) drug therapy; Z86.69 Personal history of other diseases of the nervous system and sense organs; Z88.5 Allergy status to narcotic agent
CPT/HCPCS: 36415; 71045; 80048; 80053; 80076; 80306; 80307; 80320; 80329; 81003; 82330; 82550; 83690; 83735; 84100; 84443; 85025; 85610; 87150; 87633; 93005; 94640; 94664; 96365; 96375; 96376; 99284; 99285; A9270; G0425; J2060; J7120; Q3014; 81001; 87086

== ENCOUNTER 2024-01-06 20:00 | Outpatient (CLI) | payer OTHER | END 2024-01-06 20:01 | disposition EMS.NT | LOC: EMS 20:00 | DX: R53.83 Other fatigue (principal); Z91.148 Patient's other noncompliance with medication regimen for other reason ==

== ENCOUNTER 2024-04-30 23:03 | Outpatient (CLI) | payer OTHER | END 2024-04-30 23:04 | disposition critical access hospital (66) | LOC: EMS 23:03 | DX: F10.129 Alcohol abuse with intoxication, unspecified (principal) | CPT/HCPCS: A0425; A0429 ==

== ENCOUNTER 2024-04-30 23:25 | Emergency (ER) | payer OTHER ==
--- NOTE | 2024-04-30 23:36 | ED Physician Documentation ---
History of Present Illness - Stated complaint Stated Complaint: ETOH - History obtained from History obtained from: Patient, EMS - Additonal information Additional information: Patient is a 59-year-old male with a history of PTSD and alcohol abuse presenting quite combative with EMS. History is limited from EMS and patient is not able to provide any meaningful history on arrival. Seems that patient's brother whom he lives with woke him up and patient started getting combative with the brother so EMS was called. Patient had been cooperative for EMS up until a short distance from the hospital when he started to then scream out and kick and swing his arms. Review of Systems Constitutional: denies: Fever Cardiac: denies: Chest pain / pressure Respiratory: denies: Dyspnea GI: denies: Abdominal Pain, Vomiting Psychiatric: denies: Suicidal PD PAST MEDICAL HISTORY - Past Medical History Cardiovascular: Hypertension, High cholesterol Respiratory: COPD, Pneumonia Endocrine/Autoimmune: None GI: None : None HEENT: Chronic sinusitis Psych: Panic attacks Musculoskeletal: None Derm: None - Past Surgical History Past Surgical History: Yes - Present Medications Home Medications: Ambulatory Orders Medication Instructions Recorded Confirmed Albuterol Sulfate [Proair 2 puffs PO QID PRN 06/12/23 06/12/23 Respiclick] Ergocalciferol (Vitamin D2) 1 cap PO Q7D 06/12/23 06/12/23 [Vitamin D2] Sertraline HCl [Zoloft] 3 tab PO DAILY 06/12/23 06/12/23 Metoprolol Succinate [Toprol Xl] 25 mg PO BID tab 06/16/23 Nicotine 14 mg Patch [Nicoderm] 1 patch TOP DAILY patch 06/16/23 Nicotine 21 mg Patch [Nicoderm] 1 patch TOP DAILY patch 06/16/23 Thiamine [Vitamin B-1] 100 mg PO DAILY tab 06/16/23 amLODIPine [Norvasc] 5 mg PO DAILY #0 tab 06/16/23 - Allergies Allergies/Adverse Reactions: Allergies Allergy/AdvReac Type Severity Reaction Status Date / Time codeine Allergy Unknown Verified 06/10/23 19:55 - Social History Does the pt smoke?: Yes Smoking Status: Current every day smoker Does the pt drink ETOH?: Yes Does the pt have substance abuse?: No - Immunizations Immunizations are current?: Yes - POLST Patient has POLST: No PD ED PE NORMAL - General General: Alert and oriented X 3, No acute distress, Other (Exam was performed after patient had calm down once he had received Haldol and Ativan and is more cooperative) - HEENT HEENT: Atraumatic, PERRL, EOMI, Pharynx benign, Other (Smells of EtOH) - Neck Neck: Supple, no meningeal sign - Cardiac Cardiac: RRR, Strong equal pulses - Respiratory Respiratory: No respiratory distress, Clear bilaterally - Abdomen Abdomen: Normal bowel sounds, Soft, Non tender, Non distended - Derm Derm: Warm and dry - Neuro Neuro: Alert and oriented X 3, No motor deficit, Normal speech Results - Vitals Vitals: Vital Signs - 24 hr 04/30/24 04/30/24 04/30/24 23:34 23:38 23:49 Temperature 36.2 C L Heart Rate 102 H 110 H 100 Respiratory 20 18 Rate Blood Pressure 155/118 H O2 Saturation 91 L 92 If not protocol : Oxygen Flow, liters/minute 05/01/24 05/01/24 05/01/24 00:03 00:30 00:50 Temperature Heart Rate 98 90 89 Respiratory 14 18 18 Rate Blood Pressure 114/81 H 112/82 H 100/75 O2 Saturation 90 L 90 L 90 L If not protocol 2 3 : Oxygen Flow, liters/minute 05/01/24 05/01/24 05/01/24 02:50 04:00 06:00 Temperature Heart Rate 83 87 86 Respiratory 18 18 18 Rate Blood Pressure 114/82 H 102/77 105/84 H O2 Saturation 92 93 94 If not protocol 3 3 : Oxygen Flow, liters/minute Oxygen O2 Source Room air - EKG (time done) 1229 EKG releavant findings:: EKG personally interpreted by author of this note. Relevant findings are: Rate 88, normal sinus rhythm, no STEMI, QTc 469 - Labs Labs: Laboratory Tests 05/01/24 05/01/24 00:20 00:20 WBC 6.2 RBC 5.25 Hgb 17.3 Hct 49.7 MCV 94.7 H MCH 33.0 H MCHC 34.8 RDW 14.3 Plt Count 202 MPV 10.1 Neut # (Auto) 3.6 Lymph # (Auto) 1.7 [place] # (Auto) 0.7 Eos # (Auto) 0.1 Baso # (Auto) 0.1 Absolute Nucleated RBC 0.00 Nucleated RBC % 0.0 Sodium 146 H Potassium 3.4 L Chloride 112 H Carbon Dioxide 23 Anion Gap 11.0 BUN 13 Creatinine 0.8 Estimated GFR (MDRD) 99 Glucose 103 Calcium 9.1 Total Bilirubin 0.3 AST 16 ALT 13 Alkaline Phosphatase 66 Total Protein 6.4 Albumin 4.1 Globulin 2.3 Albumin/Globulin Ratio 1.8 Lipase 55 Salicylates < 1.5 Acetaminophen 0.2 Ethyl Alcohol 287.6 PD Medical Decision Making - ED course Complexity details: reviewed results, re-evaluated patient, d/w patient ED course: Patient is a 59-year-old male arriving with EMS quite combative, swinging at staff and shouting. Unable to redirect verbally. Patient therefore required chemical restraint With Haldol and Ativan. Patient on cardiac technologist. Soon thereafter he calm down and was able to hold a conversation. He explains that he does not know what happened. He knows that he was sleeping at home and the next thing he knows he was in an ambulance. He states he has bad PTSD. He states he did have alcohol this evening but does not feel it was a significant amount. He denies wanting help with his alcohol use. Denies feeling suicidal. He denies any discomfort. Labs reviewed including CBC, chemistries, EtOH. EtOH is elevated at 287. Patient monitored overnight. In the morning we again discussed what happened last night and he does not recall much other than drinking some alcohol and waking up in the ambulance. He denies having any concerns regarding his alcohol use and states that the amount he drank last night is not very much for him. I did confront him with his alcohol level and explained that although he does not feel it is a significant amount his blood alcohol level was quite elevated indicating that it in fact is a lot. I expressed concern for the amount of alcohol he is using. Patient is not interested in getting help for his alcohol use at this time. He is clinically sober. He is speaking clearly. He is ambulating steadily without any issue. He is not suicidal. There does not seem to be an indication for an involuntary hold. Patient to be discharged Encouraged to follow-up with PCP regarding his alcohol use. Counseled on concerning symptoms to return for. Departure - Departure Disposition: 01 Home, Self Care Clinical Impression: Alcohol intoxication, PTSD (post-traumatic stress disorder) Condition: Stable Instructions: ED Alcohol Intoxication Comments: When you initially arrived to the emergency department you were combative and we needed to give you medicine to calm you down so you would not hurt yourself or staff members. On your evaluation you were found to have an elevated alcohol level of 0.28.You were monitored overnight and seem to be doing better this morning. I do think you would benefit from help with your alcohol use. I would recommend follow-up with your primary care doctor to discuss options for treatment of alcohol use disorder. Return to the ER with any worsening symptoms such as feeling unsafe, needing help with detox or any other concerns. [facility] [address] [place] [address] Main The [facility] offers a monitored and safe setting for individuals withdrawing from alcohol and drugs, and counseling for individuals experiencing a mental health crisis. All services are provided in a 10-bed facility where intensive medical monitoring is required along with stabilization services. The goal of these services is to assess a clients mental health and substance use disorder related needs, and assist them in accessing the services they need to recover.
--- NOTE | 2024-04-30 23:37 | ED Physician Documentation ---
Restraint [id number] - Immediate Situation Face to Face Evaluation Date: 04/30/24 Face to Face Evaluation Time: 23:36 Restraint Classification: Violent, chemical w/ physical hold - Patient's Reaction & Behaviors Safety: Physically unsafe, Non-compliant Verbal: Screaming/Yelling Harm: Actual harm to others Physical: Aggressive behavior, Fighting restraints, Punching, Kicking - Behavioral Condition Attitude: Indifferent Behavior: Uncooperative, Belligerent, Agitated Orientation: Disoriented to all (Unable to assess) Mood: Angry - Evaluation Pertinent History/Illicit Drugs/Medications/Results: EtOH and PTSD
[2024-04-30] MEDS: LORazepam 2 MG/ML VIAL IM STA (23:44)
[2024-04-30] MEDS: HALOPERIDOL 5 MG/ML VIAL IM STA (23:44)
[2024-05-01 00:26] LABS: BASOPHILS # (AUTO) 0.1 10^3/uL (0.0-0.1); BASOPHILS % (AUTO) 2.3 %; EOSINOPHILS # (AUTO) 0.1 10^3/uL (0.0-0.7); EOSINOPHILS % (AUTO) 1.6 %; HCT - HEMATOCRIT 49.7 % (42.0-52.0); HGB - HEMOGLOBIN 17.3 g/dL (14.0-18.0); LYMPHOCYTES # (AUTO) 1.7 10^3/uL (1.5-3.5); LYMPHOCYTES % (AUTO) 26.9 %; MEAN CORPUSCULAR HGB CONC 34.8 g/dL (32.0-36.0); MEAN CORPUSCULAR VOLUME 94.7 fL (80.0-94.0); MEAN PLATELET VOLUME 10.1 fL (7.4-11.4); MONOCYTES # (AUTO) 0.7 10^3/uL (0.0-1.0); MONOCYTES % (AUTO) 10.5 %; NEUTROPHILS # (AUTO) 3.6 10^3/uL (1.5-6.6); NEUTROPHILS % (AUTO) 58.4 %; PLT - PLATELET COUNT 202 10^3/uL (130-450); RED BLOOD COUNT 5.25 10^6/uL (4.70-6.10); RED CELL DISTRIBUTION WIDTH 14.3 % (12.0-15.0); WHITE BLOOD COUNT 6.2 x10^3/uL (4.8-10.8)
[2024-05-01 00:43] LABS: ACETAMINOPHEN 0.2 ug/mL; ALBUMIN 4.1 g/dL (3.2-5.5); ALBUMIN/GLOBULIN RATIO 1.8 (1.0-2.2); ALKALINE PHOSPHATASE 66 IU/L (42-121); ALT ALANINE AMINOTRANSFERASE 13 IU/L (10-60); AST ASPARTATE AMINOTRANSFERASE 16 IU/L (10-42); BILIRUBIN,TOTAL 0.3 mg/dL (0.2-1.0); BUN - BLOOD UREA NITROGEN 13 mg/dL (6-20); CALCIUM 9.1 mg/dL (8.5-10.3); CARBON DIOXIDE - CO2 23 mmol/L (21-32); CHLORIDE 112 mmol/L (101-111); CREATININE 0.8 mg/dL (0.6-1.3); ETOH - ETHANOL 287.6 mg/dL; GFR - MDRD 99 (>89); GLUCOSE 103 mg/dL (74-104); LIPASE 55 U/L (11-82); POTASSIUM 3.4 mmol/L (3.5-4.5); SODIUM 146 mmol/L (135-145); TOTAL PROTEIN 6.4 g/dL (6.4-8.9)
[2024-05-01 00:55] LABS: SALICYLATE < 1.5 mg/dL
--- NOTE | 2024-05-01 06:37 | ED Physician Documentation ---
Restraint [id number] - Immediate Situation Face to Face Evaluation Date: 04/30/24 Face to Face Evaluation Time: 23:36 Restraint Classification: Violent, physical hold - Behavioral Condition Attitude: Indifferent Behavior: Uncooperative, Agitated Orientation: Disoriented to all (Unable to assess) Mood: Angry - Evaluation Pertinent History/Illicit Drugs/Medications/Results: EtOH and PTSD
[2024-05-01 07:29] VITALS: BP 124/100; O2SAT 98
== END 2024-05-01 07:30 | disposition home or self-care (01) ==
LOC: EDUNIT# → ED 23:25
DX: F10.129 Alcohol abuse with intoxication, unspecified (principal); F43.10 Post-traumatic stress disorder, unspecified; R45.1 Restlessness and agitation; R45.6 Violent behavior; Y90.8 Blood alcohol level of 240 mg/100 ml or more
CPT/HCPCS: 36415; 80053; 80143; 80179; 82077; 83690; 85025; 93005; 96372; 99284; 99285; J2060

== ENCOUNTER 2024-09-09 09:50 | Observation (INO) ==
--- NOTE | 2024-09-09 10:13 | ED Physician Documentation ---
PD HPI ALTERED MENTAL STATUS Stated complaint Stated Complaint: AMS Chief complaint Chief Complaint: General History obtained from History obtained from: Patient (patient not verbalizing more than grunts) and EMS History of Present Illness Timing - onset: How many days ago (2) Timing - duration: Days Timing - details: Gradual onset (EMS reports that the patient has 1 or 2 room mates that had not really noticed the patient being up and out of his room and not interacting well for the last couple of days. 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 Review of Systems Status of ROS: unobtainable due to mental status Meds/Allgy Home Medications Ambulatory Orders Medication Instructions Recorded Confirmed albuterol sulfate 90 mcg/actuation 2 puff PO QID PRN Shortness Of 06/12/23 09/09/24 breath activated powder inhaler Air/Wheezing (ProAir RespiClick) amlodipine 5 mg tablet (Norvasc) 5 mg PO DAILY #30 tabs 08/31/24 09/09/24 [id number] 250 2 tab PO Q4H PRN pain 09/09/24 09/09/24 mg-250 mg-65 mg tablet (Excedrin Extra Strength) Allergies Allergies Allergy/AdvReac Type Severity Reaction Status Date / Time codeine Allergy drowsiness Verified 09/09/24 14:19 PFSH Medical History Medical History (Updated 09/09/24 @ 19:40 by Marcelina Jade MD) PTSD (post-traumatic stress disorder) Problem List clean-up per request of Phys. EHR Cmte COPD (chronic obstructive pulmonary disease) HTN (hypertension) Migraine Family History Family History (Updated 09/09/24 @ 19:26 by Marcelina Jade MD) Mother COPD (chronic obstructive pulmonary disease) Father Heart attack Heart failure Brother High blood pressure Depressed Diabetes Other Alcohol abuse Alcoholism Social History Social History Smoking Status: Current every day smoker If you are a former smoker, when did you quit? (Date/Year): n/a Number of Years Smoked: 30 How many cigarettes a day do you smoke? (20 cigarettes=1 Pk): 40 Second hand tobacco smoke exposure: Yes Do you dip or chew tobacco?: No Do you vape?: No Patient requests smoking cessation consult: No Initiate information on smoking cessation: No Smoking Status Details: patient reports "chain smoker" Living arrangement: At home Living Condition: With family (Lives with his brother. He is a smoker of 2 to 3 packs/day. He is an alcoholic for the last 10 years by his report and recently has been binge drinking vodka. No drug use Hx. 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 HENMT head/scalp atraumatic Eyes PERRL he does not open his eyes spontaneously. Lymph no lymphadenopathy noted Respiratory breath sounds equal bilaterally and normal respiratory effort Cardiovascular heart rate abnormal (tachycardic) and regular rhythm noted Gastrointestinal nontender to palpation and nondistended Extremities poor toenail hygeine and feet. chronic stasis changes of skin lower legs. Scaly skin. Mild edema both legs. Neurology tremoring of right arm grossly. Other extremities respond to pain wiht withdrawing appropriately. Psychiatry mental status abnormal (obtunded), orientation abnormal (disoriented to time) and thought process abnormality noted (confused) Results Vitals Vitals: Vital Signs - 24 hr 09/09/24 09:57 09/09/24 10:11 09/09/24 12:05 Temperature 36.5 C 36.5 C Temperature Source Temporal Artery Scan Tympanic Pulse Rate 93 H 89 Respiratory Rate 20 20 Blood Pressure 176/123 H 160/110 H O2 Saturation 93 91 L 92 O2 Source Room air Room air Room air Pain Intensity 0 0 5 09/09/24 13:48 Temperature 36.5 C Temperature Source Tympanic Pulse Rate 87 Respiratory Rate 12 Blood Pressure 160/100 H O2 Saturation 92 O2 Source Room air Pain Intensity 2 Oxygen O2 Source Room air Labs Labs: Laboratory Tests 09/09/24 09/09/24 09/09/24 10:53 11:16 12:25 WBC 6.4 RBC 5.03 Hgb 17.0 Hct 48.9 MCV 97.2 H MCH 33.8 H MCHC 34.8 RDW 14.1 Plt Count 215 MPV 9.1 Neut # (Auto) 4.6 Lymph # (Auto) 1.1 L Bulloch # (Auto) 0.6 Eos # (Auto) 0.1 Baso # (Auto) 0.1 Absolute Nucleated RBC 0.00 Nucleated RBC % 0.0 VBG pH VBG pCO2 VBG pO2 VBG HCO3 VBG Total CO2 VBG O2 Saturation VBG Base Excess Sodium 144 Potassium 3.4 L Chloride 107 Carbon Dioxide 27 Anion Gap 10.0 BUN 11 Creatinine 0.6 Estimated GFR (MDRD) 138 Glucose 95 Calcium 8.3 L Magnesium 1.8 Total Bilirubin 0.4 AST 25 ALT 23 Alkaline Phosphatase 72 Total Creatine Kinase 74 Total Protein 6.9 Albumin 4.5 Globulin 2.4 Albumin/Globulin Ratio 1.9 Lipase 55 Vitamin B12 193 Folate 2.9 L TSH 0.32 L Urine Color YELLOW Urine Clarity CLEAR Urine pH 6.0 Ur Specific [place] 1.020 Urine Protein NEGATIVE Urine Glucose (UA) NEGATIVE Urine Ketones NEGATIVE Urine Occult Blood NEGATIVE Urine Nitrite NEGATIVE Urine Bilirubin NEGATIVE Urine Urobilinogen 0.2 (NORMAL) Ur Leukocyte Esterase NEGATIVE Ur Microscopic Review NOT INDICATED Urine Culture Comments NOT INDICATED Nasal Adenovirus (PCR) NOT DETECTED Nasal B. parapertussis DNA (PCR) NOT DETECTED Nasal Coronavir 229E PCR NOT DETECTED Nasal Coronavir HKU1 PCR NOT DETECTED Nasal Coronavir NL63 PCR NOT DETECTED Nasal Coronavir OC43 PCR NOT DETECTED Nasal Enterovir/Rhinovir PCR NOT DETECTED Nasal Influenza B PCR NOT DETECTED Nasal Influenza A PCR NOT DETECTED Nasal Parainfluen 1 PCR NOT DETECTED Nasal Parainfluen 2 PCR NOT DETECTED Nasal Parainfluen 3 PCR NOT DETECTED Nasal Parainfluen 4 PCR NOT DETECTED Nasal RSV (PCR) NOT DETECTED Nasal B.pertussis DNA PCR NOT DETECTED Nasal C.pneumoniae (PCR) NOT DETECTED Eric Human Metapneumo PCR NOT DETECTED Nasal M.pneumoniae (PCR) NOT DETECTED Nasal SARS-CoV-2 (PCR) NOT DETECTED Salicylates < 1.5 Urine Opiates Screen NEGATIVE Ur Buprenorphine Scrn NEGATIVE Ur Oxycodone Screen NEGATIVE Urine Methadone Screen NEGATIVE Acetaminophen 0.1 Ur Barbiturates Screen NEGATIVE Ur Tricyclics Screen NEGATIVE Ur Phencyclidine Scrn NEGATIVE Ur Amphetamine Screen NEGATIVE U Methamphetamines Scrn NEGATIVE U Benzodiazepines Scrn NEGATIVE Urine Cocaine Screen NEGATIVE U Cannabinoids Screen NEGATIVE Ur Drug Screen Comment CUTOFF CONC BELOW: Ethyl Alcohol 272.1 Serum Ketones NEGATIVE 09/09/24 12:37 WBC RBC Hgb Hct MCV MCH MCHC RDW Plt Count MPV Neut # (Auto) Lymph # (Auto) [place] # (Auto) Eos # (Auto) Baso # (Auto) Absolute Nucleated RBC Nucleated RBC % VBG pH 7.422 H VBG pCO2 40.1 L VBG pO2 65.7 H VBG HCO3 25.5 VBG Total CO2 26.8 VBG O2 Saturation 93.4 H VBG Base Excess 1.1 Sodium Potassium Chloride Carbon Dioxide Anion Gap BUN Creatinine Estimated GFR (MDRD) Glucose Calcium Magnesium Total Bilirubin AST ALT Alkaline Phosphatase Total Creatine Kinase Total Protein Albumin Globulin Albumin/Globulin Ratio Lipase Vitamin B12 Folate TSH Urine Color Urine Clarity Urine pH Ur Specific [place] Urine Protein Urine Glucose (UA) Urine Ketones Urine Occult Blood Urine Nitrite Urine Bilirubin Urine Urobilinogen Ur Leukocyte Esterase Ur Microscopic Review Urine Culture Comments Nasal Adenovirus (PCR) Nasal B. parapertussis DNA (PCR) Nasal Coronavir 229E PCR Nasal Coronavir HKU1 PCR Nasal Coronavir NL63 PCR Nasal Coronavir OC43 PCR Nasal Enterovir/Rhinovir PCR Nasal Influenza B PCR Nasal Influenza A PCR Nasal Parainfluen 1 PCR Nasal Parainfluen 2 PCR Nasal Parainfluen 3 PCR Nasal Parainfluen 4 PCR Nasal RSV (PCR) Nasal B.pertussis DNA PCR Nasal C.pneumoniae (PCR) Eric Human Metapneumo PCR Nasal M.pneumoniae (PCR) Nasal SARS-CoV-2 (PCR) Salicylates Urine Opiates Screen Ur Buprenorphine Scrn Ur Oxycodone Screen Urine Methadone Screen Acetaminophen Ur Barbiturates Screen Ur Tricyclics Screen Ur Phencyclidine Scrn Ur Amphetamine Screen U Methamphetamines Scrn U Benzodiazepines Scrn Urine Cocaine Screen U Cannabinoids Screen Ur Drug Screen Comment Ethyl Alcohol Serum Ketones PD Medical Decision Making ED course Complexity details: reviewed old records, reviewed results, considered differential (alcoholic ketaacidosis, liver failure, glucose abnormal, hyponatremia, other toxins, alcohol encephalopathy, brain bleed, among other concerns, will test for these variously.) and d/w ux consultant (Dr. Jade, hospitalist) Reviewed Lab Results: The patient does have an elevated alcohol level. However given his history of alcoholism I feel he is more obtunded than I would anticipate from the level of 272. He does not have any ketones in his serum and his bicarbonate is good so no signs of alcoholic ketoacidosis. Still awaiting CT scan of the head. Consideration for metabolic encephalopathy or even alcoholic encephalopathy. Will give thiamine. His initial folate level is low that we would not anticipate that causing the altered mentation. Still awaiting urine tox screen as well. We will regroup when those are back. He does seem to be maintaining his oxygenation and blood pressure adequately. His blood pressure is actually slightly elevated. Heart rate is also slightly elevated. His mentation is not really improved in the time so far that he has been here. Still awaiting the [facility] for obtaining urine sample and the head CT. subsequent CT head is okay. Utox without other findings. He is more awake with eye opening but is still looking around blankly. Does answer name and place. Not aware of other circumstances nor season of the year. I feel he is much ore altered than I would expect based on the alcohol level for him. Concerned about other causes for confusion and level of obtundation initially. Discharge Plan Discharge Patient Disposition: ED Place in Observation Clinical Impression: Altered mental status, Alcohol use disorder, Alcoholic encephalopathy Interventions: ED Admission Assessment Last Done: 09/09/24 15:12
--- NOTE | 2024-09-09 10:43 | XRAY Report ---
PROCEDURE: XR Chest 1V INDICATIONS: altered mental status TECHNIQUE: One view of the chest was acquired. COMPARISON: 06/10/2023. FINDINGS: Surgical changes and devices: None. Lungs and pleura: 4 inspiratory effort and mild elevation of right hemidiaphragm. No pleural effusion s or pneumothorax. Lungs are clear. Mediastinum: Mediastinal contours appear normal. Heart size is normal. Bones and chest wall: No suspicious bony lesions. Overlying soft tissues appear unremarkable. IMPRESSION: No acute cardiopulmonary process. Reviewed by: Cem Sanchez MD on 09/09/2024 10:42 AM [facility] Approved by: Cem Sanchez MD on 09/09/2024 10:42 AM [facility] Station ID: [id number]
[2024-09-09 10:58] LABS: BASOPHILS # (AUTO) 0.1 10^3/uL (0.0-0.1); BASOPHILS % (AUTO) 1.6 %; EOSINOPHILS # (AUTO) 0.1 10^3/uL (0.0-0.7); EOSINOPHILS % (AUTO) 1.2 %; HCT - HEMATOCRIT 48.9 % (42.0-52.0); LYMPHOCYTES # (AUTO) 1.1 10^3/uL (1.5-3.5); LYMPHOCYTES % (AUTO) 16.5 %; MEAN CORPUSCULAR HEMOGLOBIN 33.8 pg (27.0-31.0); MEAN CORPUSCULAR HGB CONC 34.8 g/dL (32.0-36.0); MEAN CORPUSCULAR VOLUME 97.2 fL (80.0-94.0); MEAN PLATELET VOLUME 9.1 fL (7.4-11.4); MONOCYTES # (AUTO) 0.6 10^3/uL (0.0-1.0); MONOCYTES % (AUTO) 8.9 %; NEUTROPHILS # (AUTO) 4.6 10^3/uL (1.5-6.6); NEUTROPHILS % (AUTO) 71.5 %; PLT - PLATELET COUNT 215 10^3/uL (130-450); RED BLOOD COUNT 5.03 10^6/uL (4.70-6.10); RED CELL DISTRIBUTION WIDTH 14.1 % (12.0-15.0); WHITE BLOOD COUNT 6.4 x10^3/uL (4.8-10.8)
[2024-09-09] MEDS: THIAMINE 100 MG/1 ML 2 ML MDV IVP STA (11:03)
[2024-09-09] MEDS: SODIUM CHLORIDE 0.9% 1,000 ML IV STA (11:03)
[2024-09-09 11:06] LABS: KETONES, SERUM (ACETEST) NEGATIVE (NEGATIVE)
[2024-09-09 11:12] LABS: ACETAMINOPHEN 0.1 ug/mL; ALBUMIN 4.5 g/dL (3.2-5.5); ALBUMIN/GLOBULIN RATIO 1.9 (1.0-2.2); ALKALINE PHOSPHATASE 72 IU/L (42-121); ALT ALANINE AMINOTRANSFERASE 23 IU/L (10-60); AST ASPARTATE AMINOTRANSFERASE 25 IU/L (10-42); BILIRUBIN,TOTAL 0.4 mg/dL (0.2-1.0); BUN - BLOOD UREA NITROGEN 11 mg/dL (6-20); CALCIUM 8.3 mg/dL (8.5-10.3); CARBON DIOXIDE - CO2 27 mmol/L (21-32); CHLORIDE 107 mmol/L (101-111); CK- CREATINE KINASE 74 IU/L (30-223); CREATININE 0.6 mg/dL (0.6-1.3); ETOH - ETHANOL 272.1 mg/dL; GFR - MDRD 138 (>89); GLUCOSE 95 mg/dL (74-104); LIPASE 55 U/L (11-82); MAGNESIUM 1.8 mg/dL (1.7-2.3); POTASSIUM 3.4 mmol/L (3.5-4.5); SODIUM 144 mmol/L (135-145); TOTAL PROTEIN 6.9 g/dL (6.4-8.9)
[2024-09-09 11:13] LABS: SALICYLATE < 1.5 mg/dL
[2024-09-09 11:32] LABS: THYROID STIMULATING HORMONE 0.32 uIU/mL (0.34-5.60)
[2024-09-09 12:18] LABS: B. PARAPERTUSSIS- RESP PCR PAN NOT DETECTED; CORONAVIRUS 229E-RESP PCR NOT DETECTED; CORONAVIRUS HKU1-RESP PCR NOT DETECTED; CORONAVIRUS NL63-RESP PCR NOT DETECTED; CORONAVIRUS OC43-RESP PCR NOT DETECTED; HUMAN METAPNEUMOVIRUS NOT DETECTED; INFLUENZA A- RESP PCR PANEL NOT DETECTED; INFLUENZA B - RESP PCR PANEL NOT DETECTED; PARAINFLUENZA VIRUS 1 NOT DETECTED; PARAINFLUENZA VIRUS 2 NOT DETECTED; PARAINFLUENZA VIRUS 3 NOT DETECTED; PARAINFLUENZA VIRUS 4 NOT DETECTED; RHINOVIRUS/ENTEROVIRUS NOT DETECTED; RSV- RESP PCR PANEL NOT DETECTED; SARS-CoV-2 -RESP PCR PANEL NOT DETECTED
[2024-09-09 12:19] LABS: B. PERTUSSIS- RESP PCR PANEL NOT DETECTED; C. PNEUMONIAE- RESP PCR PANEL NOT DETECTED; M. PNEUMONIAE- RESP PCR PANEL NOT DETECTED
--- NOTE | 2024-09-09 12:42 | CT Report ---
PROCEDURE: CT Head WO INDICATIONS: poor responsive for 1-2 days TECHNIQUE: Noncontrast 4.5 mm thick angled axial sections acquired from the foramen magnum to the vertex. For r adiation dose reduction, the following was used: automated exposure control, adjustment of mA and/or kV according to patient size. COMPARISON: 08/31/2024 and 03/20/2023. FINDINGS: Image quality: Excellent. CSF spaces: Basal cisterns are patent. No extra-axial fluid collections. Ventricles are normal in size and shape. Brain: No midline shift. No intracranial masses or hemorrhage. Pena-white matter interface is norm al. Skull and face: Calvarium and visualized facial bones are intact, without suspicious lesions. Sinuses: Opacification of right sphenoid sinus is again seen unchanged from prior study. Breath of th e sinuses and mastoids are clear. IMPRESSION: No acute intracranial pathology. No significant changes from previous study. Reviewed by: Cem Sanchez MD on 09/09/2024 12:41 PM PST Approved by: Cem Sanchez MD on 09/09/2024 12:41 PM PST Station ID: [id number]
[2024-09-09 12:47] LABS: VBG BASE EXCESS 1.1 mmol/L (-2 - +2); VBG HCO3 25.5 mmol/L (23-28); VBG OXYGEN SATURATION 93.4 % (60-80); VBG PCO2 40.1 mmHg (41-51); VBG PH 7.422 (7.31-7.41); VBG PO2 65.7 mmHg (25-47); VBG TOTAL CO2 26.8 mmol/L (24-29)
[2024-09-09 12:48] LABS: BILIRUBIN,URINE NEGATIVE (NEGATIVE); GLUCOSE, URINE (UA) NEGATIVE (NEGATIVE); KETONES,URINE (UA) NEGATIVE (NEGATIVE); LEUKOCYTE ESTERASE, URINE NEGATIVE (NEGATIVE); NITRITE,URINE NEGATIVE (NEGATIVE); OCCULT BLOOD,URINE NEGATIVE (NEGATIVE); PROTEIN,URINE NEGATIVE (NEGATIVE); UROBILINOGEN,URINE 0.2 (NORMAL) E.U./dL (NORMAL)
[2024-09-09 12:51] LABS: CLARITY,URINE CLEAR (CLEAR)
[2024-09-09 12:59] LABS: AMPHETAMINE SCREEN,URINE NEGATIVE (NEGATIVE); BARBITURATE SCREEN,UR NEGATIVE (NEGATIVE); BENZODIAZEPINES SCREEN, URINE NEGATIVE (NEGATIVE); BUPRENORPHINE SCREEN, URINE NEGATIVE (NEGATIVE); COCAINE SCREEN URINE NEGATIVE (NEGATIVE); METHADONE SCREEN, URINE NEGATIVE (NEGATIVE); METHAMPHETAMINES SCREEN, URINE NEGATIVE (NEGATIVE); OPIATE SCREEN, URINE NEGATIVE (NEGATIVE); OXYCODONE SCREEN, URINE NEGATIVE (NEGATIVE); THC CANNABINOID SCREEN, URINE NEGATIVE (NEGATIVE); TRICYCLIC ANTIDEPRESSANT,URINE NEGATIVE (NEGATIVE)
--- NOTE | 2024-09-09 14:20 | PHARMACY PROGRESS NOTE ---
Best Possible Medication History Admit Date and Time: Home Medications Medication Instructions Recorded Confirmed Type albuterol sulfate 90 mcg/actuation 2 puff PO QID PRN Shortness Of 06/12/23 09/09/24 History breath activated powder inhaler Air/Wheezing (ProAir RespiClick) amlodipine 5 mg tablet (Norvasc) 5 mg PO DAILY #30 tabs 08/31/24 09/09/24 Rx [id number] 250 2 tab PO Q4H PRN pain 09/09/24 09/09/24 History mg-250 mg-65 mg tablet (Excedrin Extra Strength) Processed by: Pharmacy Medications reviewed in ED?: Yes Medication History completed: Yes Patient Interview: Completed Secondary Source(s): Pharmacy records [facility] Statement: As the person ultimately responsible for medication therapy, providers are able to order a medication from an existing home medication list in [facility] via the "Reconcile Routine" prior to Confirmation of that medication by sales support administrator. Such practice is discouraged except when the physician, in their clinical judgment, deems that a medical need exists for a medication without regard to previous use.
[2024-09-09] MEDS ORDERED: ONDANSETRON ODT 4 MG TABLET TL PRN (15:00)
[2024-09-09] MEDS ORDERED: oxyCODONE 5 MG TABLET PO PRN (15:00)
[2024-09-09] MEDS ORDERED: ACETAMINOPHEN 325 MG TABLET PO PRN (15:00)
[2024-09-09] MEDS ORDERED: SODIUM CHLORIDE FLUSH 0.9% 10 ML SYRINGE IVP PRN (15:00)
[2024-09-09] MEDS ORDERED: ASPIRIN ACETAMINOPHEN CAFFEINE PO PRN (15:52)
[2024-09-09] MEDS: NICOTINE 14 MG PATCH TOP SCH (17:11)
[2024-09-09] MEDS: SODIUM CHLORIDE FLUSH 0.9% 10 ML SYRINGE IVP SCH (17:11)
[2024-09-09] MEDS: FOLIC ACID 1 MG TABLET PO SCH (17:11)
[2024-09-09] MEDS: THIAMINE 100 MG TABLET PO SCH (17:11)
--- NOTE | 2024-09-09 18:54 | HISTORY & PHYSICAL EXAMINATION ---
Chief Complaint <Crow Lopez Last Filed: 09/09/24 19:10> Chief Complaint Chief Complaint: Alterer mental status History of Present Illness <Crow Lopez Filed: 09/09/24 19:10> Admitted From Admitted From:: emergence room History Obtained From Records Reviewed: Expanse History of Present Illness HPI Comment/Other: 59 year-old male with a history of alcohol abuse and PTSD is brought to ER by the EMS. His brother reports that the patient was in his room all weekend. Patient last remembered he was drinking on Monday night. Today at approximately 9 am, Pt's brother noticed the pateint was having alter mental status, right arm drop and slurred speech, at which time they called EMS. Patient was then brought to the ER and head CT was done to rule out stroke which turning sander operator to be normal. However, Pt's ethyl alcohol was at 272.1. 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 Pt was never nor had any children. Pt is not on any alcohol cessation program at this time. He lives with his younger brother. His father at 48 from [place] and mother at 72 from COPD exacerbation. Pt has no complain at time of this interview. He was able to eat and drink normally. Meds/Allgy <Crow Lopez Filed: 09/09/24 19:10> Home Medications Ambulatory Orders Medication Instructions Recorded Confirmed albuterol sulfate 90 mcg/actuation 2 puff PO QID PRN Shortness Of 06/12/23 09/09/24 breath activated powder inhaler Air/Wheezing (ProAir RespiClick) amlodipine 5 mg tablet (Norvasc) 5 mg PO DAILY #30 tabs 08/31/24 09/09/24 [id number] 250 2 tab PO Q4H PRN pain 09/09/24 09/09/24 mg-250 mg-65 mg tablet (Excedrin Extra Strength) Allergies Allergies Allergy/AdvReac Type Severity Reaction Status Date / Time codeine Allergy drowsiness Verified 09/09/24 14:19 PFSH <Crow Perez Last Filed: 09/09/24 19:10> Medical History Medical History (Updated 09/09/24 @ 19:40 by Marcelina Jade MD) PTSD (post-traumatic stress disorder) Problem List clean-up per request of Phys. EHR Cmte COPD (chronic obstructive pulmonary disease) HTN (hypertension) Migraine Family History Family History (Updated 09/09/24 @ 19:26 by Marcelina Jade MD) Mother COPD (chronic obstructive pulmonary disease) Father Heart attack Heart failure Brother High blood pressure Depressed Diabetes Other Alcohol abuse Alcoholism Social History Social History Smoking Status: Current every day smoker If you are a former smoker, when did you quit? (Date/Year): n/a Number of Years Smoked: 30 How many cigarettes a day do you smoke? (20 cigarettes=1 Pk): 40 Second hand tobacco smoke exposure: Yes Do you dip or chew tobacco?: No Do you vape?: No Patient requests smoking cessation consult: No Initiate information on smoking cessation: No Smoking Status Details: patient reports "chain smoker" Living arrangement: At home Living Condition: With family (Lives with his brother. He is a smoker of 2 to 3 packs/day. He is an alcoholic for the last 10 years by his report and recently has been binge drinking vodka. No drug use Hx. 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.) Relationship: Level: Independent Do you feel safe in your home environment?: Yes Suffered physical, verbal, emotional, or financial abuse?: No History of Abuse: No ETOH Use: Beer Frequency: Daily Substance Use: denies use POLST Patient has POLST: No <Marcelina Jade MD - Last Filed: 09/09/24 19:49> POLST POLST Status: Full Code Review of Systems <Crow Lopez - Last Filed: 09/09/24 19:10> Patient is alerted and oriented x 4 at the time of interview Respiratory Reports: Cough and Wheezing Gastrointestinal Reports: Diarrhea Musculoskeletal Reports: Joint pain Psychiatric Reports: Depression Allergic/Immunologic Reports: Wheezing <Marcelina Jade MD - Last Filed: 09/09/24 19:49> Constitutional Denies: Fatigue, Fever, Chills or Malaise Eyes Denies: Pain, Irritation or Blurry vision Ears, nose, mouth, and throat Denies: Ear pain, Nasal congestion, Post nasal drip, Nasal obstruction, Difficulty swallowing or Throat swelling Cardiovascular Denies: Irregular heart rate, chest pain, palpitations, edema, swelling of feet/ankles or shortness of breath with exertion Respiratory Denies: Shortness of breath or Sputum production Gastrointestinal Reports: Abdominal pain and Constipation; Denies: Difficulty swallowing, Change in bowel habits, Rectal bleeding, Melena or Blood in stool Genitourinary Denies: Painful urination, Incontinence or Urinary frequency Musculoskeletal Denies: Back pain Integumentary/Breast Denies: Rash, Itching or Dryness Neurological Reports: Headache and Memory problems (can't remember the last 3 days due to etoh); Denies: General weakness, Focal weakness or Weakness in extremities Psychiatric Reports: Anxiety and Other (severe startle reaction) Endocrine Denies: Fatigue Hematologic/Lymphatic Denies: Anemia or Easy bruising Allergic/Immunologic Denies: Hives or Throat swelling <Marcelina Jade MD - Last Filed: 09/09/24 19:49> Prior Level of Functionality: works all over the [place] [employer]. 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 no walker, cane. able to dress self, feed self, and toilet. Exam <Crow Lopez - Last Filed: 09/09/24 19:10> Constitutional normal general appearance HENMT normocephalic and external ears normal Eyes PERRL Neck/C-Spine visual inspection normal Lymph no lymphadenopathy noted Chest inspection of chest normal Respiratory clear to auscultation bilaterally and no use of accessory muscles Cardiovascular normal heart rate noted and regular rhythm noted Gastrointestinal abdomen normal to inspection Genitourinary no CVA tenderness Back/Pelvis spine normal to inspection Extremities normal to inspection Neurology no focal motor deficit noted, no sensory deficits noted and speech normal Skin skin color normal <Marcelina Jade MD - Last Filed: 09/09/24 19:49> Exam Disheveled white male looks older than stated age. Hair is long. Mcmahon is long and tangled. Poor dentition. Severe startle reaction and he murmurs to himself "you are going to be okay, you going to be okay" Constitutional abnormal general appearance HENMT dentition abnormal and gingiva abnormal Gastrointestinal abdomen soft to palpation and nontender to palpation Neurology no focal motor deficit noted (intermittent very small right forearm and hand tremor. ) Psychiatry mental status grossly normal and memory abnormal doesn't remember last 3 days Conclusion/Plan <Crow Lopez - Last Filed: 09/09/24 19:10> Problem List (1) Stroke-like symptoms: (2) Alcohol use disorder: (3) HTN (hypertension): (4) Tobacco abuse: Plan 1. Patient will be observed overnight for possible alcohol withdrawal. Lab Results Lab results reviewed: Yes 09/09/24 10:53 09/09/24 10:53 <Marcelina Jade MD - Last Filed: 09/09/24 19:49> Problem List (1) Stroke-like symptoms: Plan: Speaking to the patient's brother, and his friend, both were concerned that the patient was having a stroke because of the right arm tremor that happened this morning. And the fact that the patient did not remember the last 2 days. Unfortunate cannot get an idea what the patient was like the last 2 days because the brother had not seen him. Even though they live together, they were each in their separate rooms and they had no contact with 1 another until this morning. After reviewing the data which included a negative CT scan, and examining this patient with an alcohol level of 272 mg/dL, I suspect the patient had a blackout. He is reluctant to except that because he feels like "I could not drink that much", but he cannot remember how much he drank Monday or Monday or Monday. I think that the right arm tremor may be early alcohol withdrawal. Plan: Observation status to follow his mental status Watch for signs and symptoms of alcohol withdrawal start CIWA protocol Hopefully be able to discharge tomorrow morning if he has no further recurrence of memory loss (2) Alcohol use disorder: Plan: Currently not in alcohol withdrawal. I will give oral thiamine 100 mg daily, folic acid 1 mg daily. I have encouraged him to join AA or some type of alcohol support group. He has never been in rehab other than the 2021 admission to [facility]. He rationalizes quite a bit of barriers to why he cannot get help for alcohol use disorder. [facility]. He cannot get to the [facility] because his car is about to repossessed. But he needs his car to go to work. Etc., etc. I will have social work see him in the morning and see if there is any opportunities that be given to him Also start the CIWA protocol (3) HTN (hypertension): Plan: This patient's blood pressure is elevated. It is because he did not take his medicines for the last 3 days? Is because he is intoxicated with an alcohol level of 272 mg/dL? Or is it because he is going to start going through withdrawal. In any case I will resume his blood pressure medication which is Norvasc 5 mg daily. (4) Tobacco abuse: Plan: He is delighted at the idea of receiving a nicotine patch. He says that he goes straight through tremendous nicotine withdrawal. I will start him on 14 mg patch justice.
[2024-09-09 20:17] LABS: INR 1.1 (0.8-1.2); PT - PROTHROMBIN TIME 11.8 secs (9.9-12.6)
[2024-09-09 20:27] LABS: ALBUMIN 4.4 g/dL (3.2-5.5); BILIRUBIN,TOTAL 0.4 mg/dL (0.2-1.0); CALCIUM 8.5 mg/dL (8.5-10.3); CREATININE 0.7 mg/dL (0.6-1.3); POTASSIUM 3.3 mmol/L (3.5-4.5); TOTAL PROTEIN 6.6 g/dL (6.4-8.9)
[2024-09-10] MEDS: LORazepam 2 MG/ML VIAL IVP PRN (00:15)
[2024-09-10] MEDS: ONDANSETRON 4 MG/2 ML VIAL IVP PRN (05:32)
[2024-09-10 05:33] LABS: BASOPHILS # (AUTO) 0.1 10^3/uL (0.0-0.1); BASOPHILS % (AUTO) 1.6 %; EOSINOPHILS # (AUTO) 0.1 10^3/uL (0.0-0.7); EOSINOPHILS % (AUTO) 1.4 %; HCT - HEMATOCRIT 45.7 % (42.0-52.0); HGB - HEMOGLOBIN 16.1 g/dL (14.0-18.0); LYMPHOCYTES # (AUTO) 0.7 10^3/uL (1.5-3.5); LYMPHOCYTES % (AUTO) 12.6 %; MEAN CORPUSCULAR HGB CONC 35.2 g/dL (32.0-36.0); MEAN CORPUSCULAR VOLUME 96.6 fL (80.0-94.0); MEAN PLATELET VOLUME 9.6 fL (7.4-11.4); MONOCYTES # (AUTO) 0.7 10^3/uL (0.0-1.0); MONOCYTES % (AUTO) 12.1 %; NEUTROPHILS % (AUTO) 72.1 %; PLT - PLATELET COUNT 199 10^3/uL (130-450); RED BLOOD COUNT 4.73 10^6/uL (4.70-6.10); RED CELL DISTRIBUTION WIDTH 13.7 % (12.0-15.0); WHITE BLOOD COUNT 5.6 x10^3/uL (4.8-10.8)
[2024-09-10 05:47] LABS: ALBUMIN 4.2 g/dL (3.2-5.5); ALKALINE PHOSPHATASE 67 IU/L (42-121); ALT ALANINE AMINOTRANSFERASE 21 IU/L (10-60); AST ASPARTATE AMINOTRANSFERASE 23 IU/L (10-42); BILIRUBIN,DIRECT 0.14 mg/dL (0.03-0.18); BILIRUBIN,TOTAL 0.7 mg/dL (0.2-1.0); BUN - BLOOD UREA NITROGEN 9 mg/dL (6-20); CALCIUM 8.4 mg/dL (8.5-10.3); CARBON DIOXIDE - CO2 27 mmol/L (21-32); CHLORIDE 102 mmol/L (101-111); CREATININE 0.6 mg/dL (0.6-1.3); ETOH - ETHANOL < 10.0 mg/dL; GFR - MDRD 138 (>89); GLUCOSE 93 mg/dL (74-104); MAGNESIUM 1.4 mg/dL (1.7-2.3); PHOSPHORUS 1.6 mg/dL (2.5-5.0); POTASSIUM 3.2 mmol/L (3.5-4.5); SODIUM 137 mmol/L (135-145)
[2024-09-10] MEDS: PRENATAL VITAMIN TABLET PO SCH (08:28)
[2024-09-10] MEDS: amLODIPine 5 MG TABLET PO SCH (08:28)
[2024-09-10] MEDS ORDERED: MAGNESIUM SULFATE 1 GM/2 ML VIAL IVP STA (10:42)
[2024-09-10] MEDS ORDERED: SODIUM CHLORIDE 0.9% 250 ML IV ONE (10:57)
[2024-09-10] MEDS: amLODIPine 5 MG TABLET PO STA (11:02)
[2024-09-10] MEDS: POTASSIUM CHLORIDE 20 MEQ TABLET PO ONE (11:02)
[2024-09-10] MEDS: POTASSIUM PHOSPHATE 15 MMOL in SODIUM CHLORIDE 0.9% 250 ML IV SCH (12:33)
[2024-09-10] MEDS: MAGNESIUM SULFATE 1 GM in SODIUM CHLORIDE 0.9% 50 ML IV ONE (12:33)
--- NOTE | 2024-09-10 13:12 | Discharge Summary ---
Discharge Summary Admit Date: 09/09/24 Discharge Date: 09/10/24 Discharging Provider: Marcelina Jade MD Primary Care Provider: Thang Vega MD [facility] Code Status: Attempt Resuscitation DIAGNOSES Discharge Diagnoses with Status of Each Condition: 1. Strokelike symptoms, stroke ruled out, resolved 2. Blackout spell due to alcohol, resolved 3. Alcohol use disorder 4. Hypertension, uncontrolled 5. Mild alcohol withdrawal 6. Tobacco abuse HPI History of Present Illness: 59 year-old male with a history of alcohol abuse and PTSD is brought to ER by the EMS. His brother reports that the patient was in his room all weekend. Patient last remembered he was drinking on Monday night. Today at approximately 9 am, Pt's brother noticed the pateint was having alter mental status, right arm drop and slurred speech, at which time they called EMS. 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 However, Pt's ethyl alcohol was at 272.1. 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 Pt was never nor had any children. Pt is not on any alcohol cessation program at this time. He lives with his younger brother. His father at 48 from OR and mother at 72 from COPD exacerbation. Pt has no complain at time of this interview. He was able to eat and drink normally. CONSULTS | PROCEDURES Procedures: 1. Chest x-ray is without acute cardiopulmonary process 2. Head CT is of excellent quality. No acute intracranial pathology, no significant changes from previous study of August 31, 2024 and March 20, 2023 3. Toxicology screen was negative for all substances except for alcohol. His alcohol level was 272.1 mg/dL HOSPITAL COURSE Hospital Course: Patient was placed in observation status because of fears of possible stroke. The right arm tremor was particularly alarming to his family. But by the time the patient got to [facility] he was awake, alert, appropriate. No tremors. Did not remember most of Monday, Monday and this morning. He does not remember what he drank. Started to realize that he texted his boss on Monday and it was not totally read his text on his phone that he realized what he did. He had no further symptoms. Speech returned to normal. Affect returned to normal. Our suspicion is this patient had a blackout spell due to drinking. He had mild withdrawal overnight. Required 3 mg of Ativan. But for the rest of his stay was lucid, able to eat, ambulate. Blood pressure was slightly uncontrolled. He does not remember if he took his blood pressure medicines for those 3 days he was "out of it". His Norvasc was resumed. At discharge blood pressure was 139/101. He also had hypomagnesemia, hypophosphatemia, and hypokalemia. All of those were supplemented at discharge. He has been given the opportunity and the information for alcohol rehab. He states that he does not feel like "it is a problem". Even with the stay in 2021 at [facility] or the fact that he blacked out this weekend. I strongly encouraged him to join some support group even if it was AAA. I also suggested he may want to stop driving. 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 Past the patient please see his primary care provider in follow-up. He is followed by Dr. Vega at [facility] in [place]. Discussed alcohol cessation. Strongly encouraged to seek [facility].Have also asked him to please start thiamine 100 mg p.o. daily and a vitamin so that he can get his folate and B vitamins. ALLERGIES Allergies Allergy/AdvReac Type Severity Reaction Status Date / Time codeine Allergy drowsiness Verified 09/09/24 14:19 MEDICATIONS Ambulatory Orders Medication Instructions Recorded Confirmed albuterol sulfate 90 mcg/actuation 2 puff PO QID PRN Shortness Of 06/12/23 09/09/24 breath activated powder inhaler Air/Wheezing (ProAir RespiClick) amlodipine 5 mg tablet (Norvasc) 5 mg PO DAILY #30 tabs 08/31/24 09/09/24 [id number] 250 2 tab PO Q4H PRN pain 09/09/24 09/09/24 mg-250 mg-65 mg tablet (Excedrin Extra Strength) vits no.118-iron asparto 1 cap PO DAILY #60 caps 09/10/24 30 mg-folate 1 mg-dha 300 mg capsule (PrimaCare) thiamine HCl (vitamin B1) 100 mg 100 mg PO DAILY #30 tabs 09/10/24 tablet PHYSICAL EXAM AT DISCHARGE General Appearance: positive No acute distress, Alert and Other (Disheveled, appears stated age, hair is quite long, rm is down to his upper sternum. His goal is to have his rm down to his belly.) Eyes Bilateral: positive PERRL ENT: positive Other (Poor dentition) Neck: positive Thyroid nml, Lymphadenopathy (R) (shotty) and Lymphadenopathy (L) (shotty); negative Thyromegaly or Stiff neck Respiratory: positive No respiratory distress and Breath sounds nml Cardiovascular: positive Regular rate & rhythm, No murmur and No gallop Abdomen: positive Non-tender, No organomegaly and Nml bowel sounds Extremities: positive Non-tender, Full ROM and Nml appearance Neurologic/Psychiatric: positive Oriented x3, CN's nml (2-12) and Motor nml (tremor not present this am or afternoon) LABS 09/10/24 05:23 09/10/24 05:23 TIME SPENT Time Spent in Discharge (Minutes): 15 Discharge Plan Discharge Patient Disposition: Home, Self Care Medically Cleared Date:: 09/10/24 Prescriptions: New PrimaCare 30-1-300 mg capsule 1 cap PO DAILY Qty: 60 0RF thiamine HCl (vitamin B1) 100 mg tablet 100 mg PO DAILY Qty: 30 0RF Continued ProAir RespiClick 90 MCG aerosol powdr breath activated 2 puff PO QID PRN (Reason: Shortness Of Air/Wheezing) amlodipine [Norvasc] 5 mg tablet 5 mg PO DAILY Qty: 30 2RF Excedrin Extra Strength 250-250-65 mg tablet 2 tab PO Q4H PRN (Reason: pain) Diet: Regular Interventions: Belongings Inventory Last Done: 09/09/24 15:22 Discharge Last Done: 09/10/24 14:29 Discharge Checklist - Nursing Last Done: 09/10/24 14:29 Health Concerns: Presented to the hospital with strokelike symptoms because you had had a blackout for 2 days and your right arm was not working on Monday morning. Once you came to the hospital we evaluated you for infection, stroke, cardiac arrhythmia and we found you to be legally intoxicated. Intoxication levels are to 100 mg/dL of alcohol. He were 272. As such we do not think you are having a stroke, we think you just had a blackout spell from too much drinking. Your blood pressure has been elevated. We think you missed your medicines for a couple of days. You had mild withdrawal while here and you required 3 doses of a tranquilizer called Ativan. You are now stable to go home. Your symptoms have resolved. Care Plan Goals: At this time you do not have any goals to stop drinking. We strongly encourage you to do so but you do not feel that alcohol abuse is a problem for you yet. Assessment: Patient is alert, oriented to person, place, time and situation. Poor insight Plan of Treatment: 1. Patient needs to follow-up with his primary care provider at the [facility] in [place]. 2. Social work has met with the patient to give him a handout on different opportunities to get support groups to stop drinking. 3. I am asking the patient start thiamine 100 mg a day as well as a vitamin daily. Print Language: Romanian Patient Instructions: Addiction Alcohol
[2024-09-10 13:37] VITALS: O2SAT 98
[2024-09-10] MEDS: NEUTRA-PHOS 250 MG TABLET PO ONE (14:12)
== END 2024-09-10 14:56 | disposition home or self-care (01) ==
LOC: EDBD → MS2 09:50 → ED 09:50 → MS2 15:18
PROVIDERS: ADMIT Specialist; ATTEND Specialist
DX: F10.139 Alcohol abuse with withdrawal, unspecified; I10 Essential (primary) hypertension; I49.3 Ventricular premature depolarization; Z91.85 Personal history of military service; F43.10 Post-traumatic stress disorder, unspecified; Y90.8 Blood alcohol level of 240 mg/100 ml or more; E87.6 Hypokalemia; F17.210 Nicotine dependence, cigarettes, uncomplicated; Z11.52 Encounter for screening for COVID-19; J44.9 Chronic obstructive pulmonary disease, unspecified; E83.42 Hypomagnesemia; E83.39 Other disorders of phosphorus metabolism; R55 Syncope and collapse